=== PATIENT | female | born 1975 | race Two or more races ===

== ENCOUNTER 2024-12-21 11:37 | Inpatient (IN) | payer MEDICAID, SELFPAY ==
[2024-12-21] VITALS (26 sets, daily range): BP systolic 99–155; BP diastolic 52–96; PULSE 64–138; RESP 13–41; TEMP 36.8–37.3; O2SAT 97–100; BMI 25.3
--- NOTE | 2024-12-21 12:02 | EKG_ITS ---
[facility] Test Date: 2024-12-21 Pat Name: DEL GARZA Department: Room: - Gender: Female [employer]: : 1975 Requested By: Dwayne Rodriguez Order Number: [id number] Reading MD: Dwayne Rodriguez Measurements Intervals [place] Rate: 138 P: 62 [place]: 132 QRS: 21 QRSD: 84 T: 63 QT: 329 QTc: 500 Interpretive Statements SINUS TACHYCARDIA POSSIBLE RIGHT VENTRICULAR CONDUCTION DELAY [RSR (QR) IN V1/V2] NONSPECIFIC T-WAVE ABNORMALITY ABNORMAL RHYTHM ECG Compared to ECG 02/23/2021 16:28:34 No significant changes /store/S0/[id number]/ecg/[id number].pdf
--- NOTE | 2024-12-21 12:02 | XR_ITS ---
Examination: CT abdomen and pelvis without contrast. Coronal 3-D reconstructions. Sagittal 2-D reconstructions. Date and time of exam:December 21, 2024 1425 hours Comparison March 05, 2011 INDICATIONS: Generalized abdominal pain today CTDI: vol (mGy): 7.3 DLP: (mGycm): 349 Technique: Axial images of the abdomen have been obtained, 3 mm slice thickness Intravenous contrast material has not been administered. Low dose protocols were performed. One or more of the following dose reduction techniques were used; automated exposure control, adjustment of the mA and/or KV according to patient size, use of iterative reconstruction technique. Findings: No focal liver or splenic lesions No gallstones No pancreatic or adrenal mass 6 mm calculus in the right renal pelvis, no hydronephrosis or ureteral calculi Aorta normal size Normal appendix No bowel obstruction 8mm fat-containing umbilical hernia No diverticulitis Anteverted uterus with intrauterine device satisfactory position No pelvic mass No bladder mass The osseous structures are intact IMPRESSION: 6 mm calculus in the right renal pelvis No hydronephrosis or ureteral calculi Normal appendix
--- NOTE | 2024-12-21 12:03 | PD.EDRME ---
Rapid Medical Screening Exam RME Arrival date/time: 12/21/24 11:37 49-year-old female with history of type 2 diabetes presents to the emergency room with a chief complaint of nausea, vomiting, elevated blood sugar, weakness, fatigue x 1 day I have greeted and performed a focused initial assessment of this patient. A comprehensive ED assessment and evaluation of the patient, analysis of all test results, and completion of the medical decision making process will be conducted by additional ED providers. Chief Complaint: General Adult/Misc Complain Vital signs: Vital Signs Temperature 98.9 F 12/21/24 11:59 Pulse Rate 138 H 12/21/24 11:59 Respiratory Rate 20 12/21/24 11:59 Blood Pressure 130/91 H 12/21/24 11:59 Pulse Oximetry (%) 100 12/21/24 11:59 Oxygen Delivery Method Room Air 12/21/24 11:59 Vital signs reviewed by provider: Yes
[2024-12-21 12:31] LABS: Beta Hydroxybutyrate 6.4 mmol/L (<0.6)
[2024-12-21 12:32] LABS: Basophils # (Auto) 0.1 Thou/mm3 (0.0-0.2); Basophils % (Auto) 0 % (0-2.5); Eosinophils % (Auto) 0 % (0-10); Hematocrit 44.1 % (36.0-46.0); Hemoglobin 14.2 g/dL (12.0-16.0); Immature Granulocytes % (Auto) 1 % (0-0); Immature Granulocytes Auto 0.26 Thou/mm3 (0.00-0.00); Lymphocytes # (Auto) 1.5 Thou/mm3 (1.0-4.8); Lymphocytes % (Auto) 6 % (10-50); Mean Corpuscular HGB Conc 32.2 g/dl (31.0-37.0); Mean Corpuscular Hemoglobin 28.1 pg (25.0-35.0); Mean Corpuscular Volume 87 fL (80-100); Monocytes % (Auto) 4 % (0-12); Neutrophils # (Auto) 22.6 Thou/mm3 (1.8-7.7); Neutrophils % (Auto) 89 % (37-80); Nucleated Red Blood Cell % 0 /100 WBC (0); Platelet Count 365 Thou/mm3 (140-440); RDW Standard Deviation 42.5 fL (36.4-46.3); Red Blood Count 5.05 Miln/mm3 (4.00-5.20); White Blood Count 25.4 Thou/mm3 (3.6-11.0)
[2024-12-21 12:51] LABS: B-Type Natriuretic Peptide 35 pg/mL (0-100)
[2024-12-21 12:55] LABS: Alanine Aminotransferase 12 U/L (10-49); Albumin, Serum 5.7 gm/dL (3.5-5.0); Albumin/Globulin Ratio 1.5 (1.2-2.2); Alkaline Phosphatase 145 U/L (46-116); Anion Gap 29 (7-16); Aspartate Amino Transferase 14 U/L (0-34); BUN/Creatinine Ratio 15 Ratio (12-20); Bilirubin,Total 0.2 mg/dL (0.3-1.2); Blood Urea Nitrogen 22 mg/dL (9-23); Calcium 10.2 mg/dL (8.3-10.6); Calcium (Corrected) 10.2 mg/dL (8.5-10.1); Chloride 99 mMol/L (98-107); Creatinine (Component) 1.5 mg/dL (0.6-1.3); Estimated Creatinine Clearance 38.8 mL/min (>60); Globulin 3.7 gm/dL (2.3-3.5); Lipase 27 U/L (12-53); Osmolality,Calculated 297 (275-295); Potassium 4.6 mMol/L (3.4-5.1); Sodium 138 mMol/L (136-145); Total Protein 9.4 gm/dL (5.7-8.2); Troponin I < 0.020 ng/mL (0.0-0.045); eGFR 43 See Note
[2024-12-21 12:57] LABS: Carbon Dioxide < 10.0 mMol/L (20.0-31.0); Glucose 436 mg/dL (74-106)
[2024-12-21 13:41] LABS: Collection Type, Urine Clean Catch
[2024-12-21 13:52] LABS: HCG Qualitative,Urine Negative
[2024-12-21 13:58] LABS: Bilirubin,Urine Negative (Negative); Blood,Urine 1+ (Negative); Budding Yeast,Urine Present; Clarity,Urine Clear (Clear/Hazy); Color,Urine Lt-Yellow (Lt Yel-Yel); Glucose, Urine 4+ (Negative); Hyaline Casts,Urine 2 /hpf (0-1); Ketones,Urine 4+ (Negative); Leukocyte Esterase,Urine Negative (Negative); Nitrite,Urine Negative (Negative); PH,Urine 5.5 (5.0-7.0); Protein,Urine 1+ (Neg - Trace); RBC,Urine 3 /hpf (0-3); Specific Gravity,Urine 1.019 (1.001-1.035); Squamous Epithelial Cell,Urine 6 /hpf (0-5); Urobilinogen,Urine Negative mg/dL (0.0-1.0); WBC,Urine < 1 /hpf (0-5)
--- NOTE | 2024-12-21 14:14 | EDNOTE_ITS ---
ED General RME/HPI General Chief complaint: General Adult/Misc Complain Stated complaint: BLOOD SUGAR 446 @ 09:27 Arrival date/time: 12/21/24 11:37 RME / HPI RME / HPI narrative: Patient is a 49 years old female with PMH of type 2 diabetes presented to the ED due to nausea and vomiting. She reports elevated blood sugar at 500 today morning. She also reports weakness and abdominal pain since yesterday. She reports she is using long acting insulin only and never been prescribed short acting insulin. She denies chest pain, SOB, palpitations, diarrhea, fever or chills. She vomited several time today morning. She reports no blood in emesis or in stool and denies melena. Related Data Previous Rx's ?Medication ?Instructions ?Recorded blood sugar diagnostic (Blood #100 ea 02/26/21 Glucose Test strips) blood-glucose meter (Blood Glucose #1 ea 02/26/21 Monitoring kit) insulin glargine 100 unit/mL (3 25 unit (0.25 mL) subc ut QAM #15 mL 02/26/21 mL) subcutaneous pen (Basaglar KwikPen U-100 Insulin) lancets 33 gauge (BD Ultra Fine #100 ea 02/26/21 Lancets) pen needle, diabetic 31 gauge x #50 ea 02/26/21 1/ (Lite Touch Insulin Pen Leigh) Allergies Allergy/AdvReac Type Severity Reaction Status Date / Time NKA* Allergy Uncoded 12/21/24 11:42 Review of Systems Review of Systems Systems Reviewed: All systems reviewed, normal except as documented ED Exam Narrative Physical exam: Gen: Well-developed and well-nourished. HEENT: NCAT, PERRLA, EOMI, MMM, anicteric conjunctivae. CVS: normal S1 and S2. RRR. No M/R/G. Resp: CTA B/L. No rhonchi, rales, crackles or wheezing. Abd: soft, tender, non-distended. BS+ in all 4 quadrants. MSK: Good ROM in BUE & BLE. No edema or rash. Neuro: CN II-XII grossly intact. Strength 5/5 in BUE & BLE. Alert and oriented x3. Psych: appropriate mood and affect. Course Quality Measures none Orders Category Date Time Status Bedside Blood Glucose Q1HR Care 12/21/24 14:09 Active COVID-19 Screening Questionnaire NOW Care 12/21/24 14:16 Active Dump Truck Operator STAT Care 12/21/24 14:09 Active DKA Protocol QSHIFT Care 12/21/24 14:09 Active Decision to Admit X1 Care 12/21/24 14:16 Active EKG (ED ONLY) *Do not use* NOW Care 12/21/24 12:03 Completed Fingerstick [Bedside Blood Glucose] NOW Care 12/21/24 12:02 Active Insert IV STAT Care 12/21/24 14:09 Active Intake and Output Routine Care 12/21/24 14:09 Ordered Notify provider NEEDED Care 12/21/24 14:09 Active Referral Registered Dietitian Routine Cons 12/21/24 14:[address] abdomen pelvis wo con Stat Exams 12/21/24 12:02 Completed EKG (ED Only) Stat Exams 12/21/24 12:02 Ordered Arterial Blood Gas Stat Lab 12/21/24 15:06 Completed BNP [B-Type Natriuretic Peptide] Stat Lab 12/21/24 12:13 Completed Beta Hydroxybutyrate Stat Lab 12/21/24 12:13 Completed Beta Hydroxybutyrate Stat Lab 12/21/24 14:49 Completed CBC Stat Lab 12/21/24 12:13 Completed CMP [Comprehensive Metabolic Panel] Stat Lab 12/21/24 12:13 Completed Glycohemoglobin w (eAG) Stat Lab 12/21/24 14:49 Completed HCG Qualitative,Urine Stat Lab 12/21/24 13:21 Completed Lactate (Lactic Acid) Stat Lab 12/21/24 14:49 Results Lipase Stat Lab 12/21/24 12:13 Completed Magnesium Stat Lab 12/21/24 14:49 Completed Phosphorous Stat Lab 12/21/24 14:49 Completed Troponin I Stat Lab 12/21/24 12:13 Completed UA [Urinalysis] Stat Lab 12/21/24 13:21 Completed Urine Culture Stat Lab 12/21/24 13:21 Received Dextrose 5%-Lactated Ringers [D5-Lr] 1,000 ml Med 12/21/24 14:08 Active Pot Chl Additive [KCl Additive] 40 meq IV 250 mls/hr Dextrose 5%-Lactated Ringers [D5-Lr] 1,000 ml Med 12/21/24 14:08 Active IV 250 mls/hr Dextrose 50% Syr [D50w Syringe Abboject] Med 12/21/24 14:08 Active 25 ml IV PRNMRX1 PRN KCL 20 mEq/L in D5-LR Med 12/21/24 14:08 Active 20 meq in 1,000 ml IV 250 mls/hr Magnesium Sulfate 2 GM Ivpb [Magnesium Sulfate Ivpb] Med 12/21/24 14:08 Active 2 gm in 50 ml IV 25 mls/hr POT PHOS 15 mMol in NS 250 ML [Pot Phos 15 mMol in NS Med 12/21/24 14:08 Active 250 ml] 15 mmol in 250 ml IV PRN POTASSIUM CHL 10 mEq IVPB [Kcl Ivpb] Med 12/21/24 14:08 Active 10 meq in 100 ml IV 100 mls/hr POTASSIUM CHL 10 mEq IVPB [Kcl Ivpb] Med 12/21/24 14:08 Active 10 meq in 100 ml IV PRN Pre-Mixed [Pre-mixed Bag] 1 bag Med 12/21/24 14:08 Active Insulin Reg 100 Units/100 ml [Myxredlin] 100 unit IV 0.1 unit/kg/hr Ringers Lactated 1000 ml [Lactated Ringers] 1,000 ml Med 12/21/24 14:08 Active Pot Chl Additive [KCl Additive] 20 meq IV 250 mls/hr Ringers Lactated 1000 ml [Lactated Ringers] 1,000 ml Med 12/21/24 14:08 Active Pot Chl Additive [KCl Additive] 40 meq IV 250 mls/hr Ringers Lactated 1000 ml [Lactated Ringers] 1,000 ml Med 12/21/24 14:08 Active IV 250 mls/hr Ringers Lactated 1000 ml [Lactated Ringers] 1,000 ml Med 12/21/24 14:58 Discontinued IV 999 mls/hr Ringers Lactated 500 ml [Lactated Ringers] 500 ml Med 12/21/24 14:57 Discontinued IV 999 mls/hr Sodium Bicarb 8.4% SYR Med 12/21/24 14:08 Active 50 ml IV PRN PRN Sodium Chloride 0.9% 250 ml [Ns] 250 ml Med 12/21/24 14:08 Active Sod Phos Additive [NaPhos Additive] 15 mmol IV 62.5 mls/hr Vital Signs Vital signs: Vital Signs Temperature 98.9 F 12/21/24 11:59 Pulse Rate 138 H 12/21/24 11:59 Respiratory Rate 20 12/21/24 11:59 Blood Pressure 130/91 H 12/21/24 11:59 Pulse Oximetry (%) 100 12/21/24 11:59 Oxygen Delivery Method Room Air 12/21/24 11:59 [facility] Patient data External records reviewed:: [facility] previous records Clinical information provided by:: patient and family Social determinants that could affect healthcare access:: none Patient has the following chronic illnesses:: IDDM 2 How is presenting disease/condition affected by chronic disease/condition?: c aused by Evaluation data The following diagnostics were reviewed and interpreted by me:: lab results and radiology exam(s) Lab and/or radiology exams considered but not ordered:: abdominal US Interpretation Summary: Consistent with AGMA and DKA. Medications Medications considered but not ordered:: none Medication administrations:: Medication Administration History Acetaminophen (Acetaminophen 325 Mg Tablet) 650 mg PO Q6H PRN PRN Reason: Pain 1-3 or Fever >100.3 Stop: 01/20/25 15:03 Dextrose (Dextrose 50%-Water Inj 50 Ml Syringe) 25 ml IV PRNMRX1 PRN PRN Reason: Blood Sugar - Low Enoxaparin Sodium (Enoxaparin Sod Inj 40 Mg/0.4 Ml Syringe) 40 mg SC HS EDENILSON Stop: 01/04/25 20:59 Potassium Chloride (Kcl Ivpb) 10 meq in 100 mls @ 100 mls/hr IV .Q1H PRN PRN Reason: IF POTASSIUM LESS THAN 3.3 Stop: 01/20/25 14:07 Magnesium Sulfate (Magnesium Sulfate Ivpb) 2 gm in 50 mls @ 25 mls/hr IV .Q2H PRN PRN Reason: PER DKA PROTOCOL Stop: 01/20/25 14:07 Insulin Human Regular 100 unit (/ IV Miscellaneous Supplies) 100 mls @ 6.078 mls/hr IV .[id number] PRN; Protocol PRN Reason: PER PROTOCOL Stop: 01/20/25 14:07 Last Admin: 12/21/24 15:48 Dose: 0.1 unit/kg/hr, 6.078 mls/hr Documented By: CS Co-signed By: LOUIE Dextrose/Lactated Ringer's (D5-Lr) 1,000 mls @ 250 mls/hr IV .Q4H PRN PRN Reason: PER PROTOCOL Stop: 01/20/25 14:07 Lactated Ringer's (Lactated Ringers) 1,000 mls @ 250 mls/hr IV .Q4H PRN PRN Reason: PER PROTOCOL Stop: 12/22/24 14:07 Potassium Chloride 20 meq/ (Lactated Ringer's) 1,010 mls @ 250 mls/hr IV .Q4H3M PRN PRN Reason: K LEVEL 3.3 TO 5.3mM/L Stop: 01/20/25 14:07 Last Admin: 12/21/24 16:12 Dose: 250 mls/hr Documented By: CS Potassium Chloride 40 meq/ (Lactated Ringer's) 1,020 mls @ 250 mls/hr IV .Q4H5M PRN PRN Reason: K LEVEL < 3.3 mM/L Stop: 01/20/25 14:07 Potassium Chloride 40 meq/ (Dextrose/Lactated Ringer's) 1,020 mls @ 250 mls/hr IV .Q4H5M PRN PRN Reason: K LEVEL < 3.3mM/L Stop: 01/20/25 14:07 Potassium Cl/Dextrose/Lact Ringer's (Kcl 20 Meq/L In D5-Lr) 20 meq in 1,000 mls @ 250 mls/hr IV .Q4H PRN PRN Reason: K LEVEL 3.3 TO 5.3 mM/L Stop: 01/20/25 14:07 Potassium Chloride (Kcl Ivpb) 10 meq in 100 mls @ 50 mls/hr IV PRN PRN PRN Reason: K LEVEL 3.3 to 5.3 & BG > 200 Stop: 01/20/25 14:07 Potassium Phosphate (Pot Phos 15 Mmol In Ns 250 Ml) 15 mmol in 250 mls @ 62.5 mls/hr IV PRN PRN PRN Reason: Phosphate <= 1mg/dL Stop: 01/20/25 14:07 Sodium Phosphate 15 mmol/ (Sodium Chloride) 255 mls @ 62.5 mls/hr IV .Q4H5M PRN PRN Reason: Phosphate <= 1mg/dL and K> than 5.3 Stop: 01/20/25 14:07 Ondansetron HCl (Ondansetron Inj 2 Mg/Ml Inj 2 Ml) 4 mg IV Q6H PRN; Protocol PRN Reason: NAUSEA OR VOMITING Stop: 01/20/25 15:09 Pantoprazole Sodium (Pantoprazole Inj 40 Mg Vial) 40 mg IVP HS EDENILSON Stop: 01/20/25 20:59 Sodium Bicarbonate (Sodium Bicarb Inj 8.4% Syr 50 Ml Syringe) 50 ml IV PRN PRN PRN Reason: For ph <= to 7.0 Stop: 01/20/25 14:07 Discontinued Medications Lactated Ringer's (Lactated Ringers) 500 mls @ 999 mls/hr IV .Q31M ONE Stop: 12/21/24 15:27 Last Admin: 12/21/24 14:57 Dose: Not Given Documented By: LOUIE Non-Admin Reason: Cancelled by Provider Lactated Ringer's (Lactated Ringers) 1,000 mls @ 999 mls/hr IV .Q1H1M ONE Stop: 12/21/24 15:58 Last Admin: 12/21/24 14:59 Dose: 999 mls/hr Documented By: LOUIE DKA protocol initiated. Consultations Consultation(s) initiated? (list below): No Diagnosis Differential Diagnosis ED Complaint MDM: DKA, HHS, acute appendicitis, diverticulitis Most likely diagnosis given after review of the tests above:: DKA Admission Indicated Admission indicated?: indicated Explain why admission is indicated or not indicated:: Admission for DKA to ICU Admission Request Was there a request for admission?: Yes Admission Attestation Admission request attestation: Discussed case with Dr. Swain from ICU service regarding admission. Discussed patients ED course, exam findings, labs, and radiology results. The morgue keeper agrees to accept the patient for admission. Disposition Plan Disposition Plan: Admit Medical Decision Making Differential Diagnosis Differential Diagnosis: DKA, HHS, acute appendicitis, diverticulitis Lab Data 12/21/24 12:13 12/21/24 12:13 Labs: Lab Results 12/21/24 12/21/24 12/21/24 Range/Units 12:13 13:21 14:49 WBC 25.4 H (3.6-11.0) Thou/mm3 RBC 5.05 (4.00-5.20) Miln/mm3 Hgb 14.2 (12.0-16.0) g/dL Hct 44.1 (36.0-46.0) % MCV 87 (80-100) fL MCH 28.1 (25.0-35.0) pg MCHC 32.2 (31.0-37.0) g/dl RDW Std Deviation 42.5 (36.4-46.3) fL Plt Count 365 (140-440) Thou/mm3 Neut % (Auto) 89 H (37-80) % Lymph % (Auto) 6 L (10-50) % [place] % (Auto) 4 (0-12) % Eos % (Auto) 0 (0-10) % Baso % (Auto) 0 (0-2.5) % Neut # (Auto) 22.6 H (1.8-7.7) Thou/mm3 Lymph # (Auto) 1.5 (1.0-4.8) Thou/mm3 [place] # (Auto) 1.0 H (0.0-0.8) Thou/mm3 Eos # (Auto) 0.0 (0.0-0.5) Thou/mm3 Baso # (Auto) 0.1 (0.0-0.2) Thou/mm3 Immature Gran # (Auto) 0.26 H (0.00-0.00) Thou/mm3 Absolute Nucleated RBC 0.00 (0.00-0.00) Thou/mm3 Immature Gran % 1 H (0-0) % Nucleated RBC % 0 (0) /100 WBC Sodium 138 (136-145) mMol/L Potassium 4.6 (3.4-5.1) mMol/L Chloride 99 (98-107) mMol/L Carbon Dioxide < 10.0 L* (20.0-31.0) mMol/L Anion Gap 29 H (7-16) BUN 22 (9-23) mg/dL Creatinine 1.5 H (0.6-1.3) mg/dL Estim Creat Clear Calc 38.8 L (>60) mL/min eGFR 43 L (60 - ) See Note BUN/Creatinine Ratio 15 (12-20) Ratio Glucose 436 H* (74-106) mg/dL Estimated Ave Glu mg/dL 312 H (80-131) mg/dL Hemoglobin A1c 12.5 H (4.8-6.0) % Hgb Calculated Osmolality 297 H (275-295) Lactic Acid 3.3 H (0.4-2.0) mMol/L Calcium 10.2 (8.3-10.6) mg/dL Corrected Calcium 10.2 H (8.5-10.1) mg/dL Phosphorus 4.3 (2.4-5.1) mg/dL Magnesium 2.3 (1.6-2.6) mg/dL Total Bilirubin 0.2 L (0.3-1.2) mg/dL AST 14 (0-34) U/L ALT 12 (10-49) U/L Alkaline Phosphatase 145 H (46-116) U/L Troponin I < 0.020 (0.0-0.045) ng/mL B-Natriuretic Peptide 35 (0-100) pg/mL Total Protein 9.4 H (5.7-8.2) gm/dL Albumin 5.7 H (3.5-5.0) gm/dL Globulin 3.7 H (2.3-3.5) gm/dL Albumin/Globulin Ratio 1.5 (1.2-2.2) Lipase 27 (12-53) U/L Beta-Hydroxybutyrate/Acetoacetate 6.4 H 6.1 H (<0.6) mmol/L Ur Collection Type Clean Catch Urine Color Lt-Yellow (Lt Yel-Yel) Urine Clarity Clear (Clear/Hazy) Urine pH 5.5 (5.0-7.0) Ur Specific [place] 1.019 (1.001-1.035) Urine Protein 1+ A (Neg - Trace) Urine Glucose (UA) 4+ A (Negative) Urine Ketones 4+ A (Negative) Urine Blood 1+ A (Negative) Urine Nitrite Negative (Negative) Urine Bilirubin Negative (Negative) Urine Urobilinogen (Auto) Negative (0.0-1.0) mg/dL Ur Leukocyte Esterase Negative (Negative) Urine RBC 3 (0-3) /hpf Urine WBC < 1 (0-5) /hpf Ur Squamous Epith Cells 6 H (0-5) /hpf Urine Bacteria None (None) Hyaline Casts 2 H (0-1) /hpf Urine Yeast (Budding) Present A (None) Urine HCG, Qual Negative Discharge Plan Plan Patient Disposition: Admit Acute Care w/in Hospital Disposition Comment: ICU Problem List Clinical Impression: DKA (diabetic ketoacidoses)
[2024-12-21] MEDS: RINGERS LACTATED 1000 ML 1,000 ML 999 ML IV (14:59)
[2024-12-21 15:06] LABS: Lactate (Lactic Acid) 3.3 mMol/L (0.4-2.0)
[2024-12-21 15:11] LABS: Base Excess -22 (-3-3); HCO3 4 mEq/L (20-26); Inspired Oxygen, FIO2 21 %; O2 Saturation 99 % (91-98); PCO2 12 mmHg (32.0-48.0); PO2 138 mmHg (83-108)
[2024-12-21 15:14] LABS: pH, Arterial 7.15 (7.35-7.45)
[2024-12-21 15:15] LABS: Beta Hydroxybutyrate 6.1 mmol/L (<0.6)
[2024-12-21 15:15] LABS: Allen Test Performed/OK; Puncture Site Right Radial
[2024-12-21 15:28] LABS: Magnesium 2.3 mg/dL (1.6-2.6); Phosphorous 4.3 mg/dL (2.4-5.1)
[2024-12-21 15:29] LABS: Glucose Estimated Average 312 mg/dL (80-131); Hemoglobin A1C 12.5 % Hgb (4.8-6.0)
--- NOTE | 2024-12-21 15:45 | ESHP_ITS ---
<Statement entered by nAn Marvin MD - 12/21/24 17:55> 49-year-old female with past medical history of diabetes on home insulin, admitted for DKA. DKA protocol started. I discussed with and supervised my co-resident involved in the care of this patient. I agree with the assessment and plan as documented above. Ann Marvin,PGY-3 Disclaimer: Despite multiple revisions, due to the dictation software being used, the document below may not be free of grammatical errors including phonetic/typographic errors. However, this does not deter from our commitment to providing health care in the patient's best interest in mind Documentation for date of: 12/21/24 HPI History of Present Illness History of present illness: The patient is a 49-year-old female with a past medical history of hypertension, hyperlipidemia, type 2 diabetes on insulin who presented to the ED on 12/21/2024 with complaints of abdominal pain, nausea and vomiting and generalized weakness. Per the patient, about 2 days ago she noticed that she was having increased urination and consequently increased fluid intake. Yesterday however, she started having a lot of abdominal pain with nausea and vomiting and associated diarrhea. Pain is said to be generalized, but worse in the epigastric region and lower quadrants. She had about 3 episodes of vomiting, nonbilious and nonbloody as well as loose stools about 3 episodes as well, also nonbloody. Prior to this, the patient has not had any sick contacts or any general feeling of unwellness, she denies dysuria or any urinary symptoms, no upper respiratory tract infections. She does endorse subjective fevers and chills as well as subjective sweats. The patient reports that she takes about 60 units of insulin at night and she uses this regularly as well as 12 to 15 units of short acting with meals. When asked, she does not know her blood glucose range at home because her checks it. She does admit that this morning when he was checked, it was said to be above 400s which prompted her visit to the ED. ED course: In the ED, the patient was afebrile, initial blood pressure was normal. Significant labs included leukocytosis of 25.4, CMP showed sodium 138 potassium 4.6 chloride 99 bicarb less than 10 anion gap 29 BUN 22 creatinine 1.5 glucose 436 lactic acid 3.3 corrected calcium 10.2 beta hydroxybutyrate of 6.1. ABG was done and pH is 7.15 with pCO2 of 12 and bicarb of 4. Urinalysis showed 1+ protein, 4+ glucose, 4+ ketones, 6 epithelial cells, hyaline cast and no bacteria. [id number]. CT abdomen pelvis was done showed a 6 mm calculus in the right renal pelvis. Admitted to ICU for DKA management PMHx-as above PSHx-Nil Social history-never smoked, does not drink alcohol or use illicit drugs Home meds-insulin, metformin, hydrochlorothiazide, gabapentin, simvastatin. Review of Systems Review of Systems Narrative Review of Systems: GENERAL: Admits subjective fevers and chills as well as diaphoresis HEENT: Admits headache NEURO: Admits unusual weakness CARDIO: Denies chest pain or palpitations. PULM: Denies SOB, coughing, or wheezing. GI: Admits abdominal pain, nausea, vomiting, diarrhea. URO: Admits increased urination, denies dysuria. MSK/EXT/SKIN: Denies joint/skeletal/muscle pain, issues/changes in upper or lower extremities, itchiness, or superficial pain. PSYCH: Cooperative, pleasant mood & affect. Exam Vital Signs Temp Pulse Resp BP Pulse Ox O2 Del Method 98.4 F 132 H 20 154/96 H 100 Room Air 12/21/24 14:42 12/21/24 14:42 12/21/24 14:42 12/21/24 14:42 12/21/24 14:42 12/21/24 14:42 Narrative Exam GENERAL: AAOX3, moderately dehydrated, little comfortable NEURO: WHITE SIDEWALL TIRE BUFFER grossly intact, moves extremities x4 HEENT: Dry mucosa. Eyes open, symmetrical, & clear CARDIO: No chest pain on palpation. Tachycardic, no murmurs PULM: No noted coughing/dyspnea. Lungs CTA B/L GI: Abdomen soft, nondistended, tender epigastrium and lower quadrants URO/RESIDENT SERVICES MANAGER:: No further abnormalities noted. SKIN/MSK/EXT: No wounds/rashes/edema/amputations, no pain on palpation. Pedal pulses present B/L Results: Labs 12/24/24 05:38 12/24/24 05:38 Labs: Short CBC 12/21/24 Range/Units 12:13 WBC 25.4 H (3.6-11.0) Thou/mm3 Hgb 14.2 (12.0-16.0) g/dL Hct 44.1 (36.0-46.0) % Plt Count 365 (140-440) Thou/mm3 BMP 12/21/24 12:13 Sodium 138 Potassium 4.6 Chloride 99 Carbon Dioxide < 10.0 L* BUN 22 Creatinine 1.5 H Glucose 436 H* Calcium 10.2 Cardiac Enzymes 12/21/24 Range/Units 12:13 Troponin I < 0.020 (0.0-0.045) ng/mL Liver Function 12/21/24 Range/Units 12:13 Total Bilirubin 0.2 L (0.3-1.2) mg/dL AST 14 (0-34) U/L ALT 12 (10-49) U/L Alkaline Phosphatase 145 H (46-116) U/L Albumin 5.7 H (3.5-5.0) gm/dL Urine 12/21/24 Range/Units 13:21 Urine Color Lt-Yellow (Lt Yel-Yel) Urine Clarity Clear (Clear/Hazy) Urine pH 5.5 (5.0-7.0) Ur Specific [place] 1.019 (1.001-1.035) Urine Protein 1+ A (Neg - Trace) Urine Glucose (UA) 4+ A (Negative) ABG Interpretation ABG results: 12/21/24 15:06 ABG pH 7.15 L* ABG pCO2 12 L* ABG pO2 138 H ABG HCO3 4 L* ABG O2 Saturation 99 H ABG Base Excess -22 L Quality Measures Quality Measures VTE prophylaxis Medications Home Medications and Allergies Allergies Allergy/AdvReac Type Severity Reaction Status Date / Time No Known Allergies Allergy Unverified 12/22/24 08:32 Visit Medications Acetaminophen (Acetaminophen 325 Mg Tablet) 650 mg PO Q6H PRN PRN Reason: Pain 1-3 or Fever >100.3 Stop: 01/20/25 15:03 Dextrose (Dextrose 50%-Water Inj 50 Ml Syringe) 25 ml IV [id number] PRN PRN Reason: Blood Sugar - Low Enoxaparin Sodium (Enoxaparin Sod Inj 40 Mg/0.4 Ml Syringe) 40 mg SC HS EDENILSON Stop: 01/04/25 20:59 Potassium Chloride (Kcl Ivpb) 10 meq in 100 mls @ 100 mls/hr IV .Q1H PRN PRN Reason: IF POTASSIUM LESS THAN 3.3 Stop: 01/20/25 14:07 Magnesium Sulfate (Magnesium Sulfate Ivpb) 2 gm in 50 mls @ 25 mls/hr IV .Q2H PRN PRN Reason: PER DKA PROTOCOL Stop: 01/20/25 14:07 Insulin Human Regular 100 unit (/ IV Miscellaneous Supplies) 100 mls @ 6.078 mls/hr IV .[id number] PRN; Protocol PRN Reason: PER PROTOCOL Stop: 01/20/25 14:07 Dextrose/Lactated Ringer's (D5-Lr) 1,000 mls @ 250 mls/hr IV .Q4H PRN PRN Reason: PER PROTOCOL Stop: 01/20/25 14:07 Lactated Ringer's (Lactated Ringers) 1,000 mls @ 250 mls/hr IV .Q4H PRN PRN Reason: PER PROTOCOL Stop: 12/22/24 14:07 Potassium Chloride 20 meq/ (Lactated Ringer's) 1,010 mls @ 250 mls/hr IV .Q4H3M PRN PRN Reason: K LEVEL 3.3 TO 5.3mM/L Stop: 01/20/25 14:07 Potassium Chloride 40 meq/ (Lactated Ringer's) 1,020 mls @ 250 mls/hr IV .Q4H5M PRN PRN Reason: K LEVEL < 3.3 mM/L Stop: 01/20/25 14:07 Potassium Chloride 40 meq/ (Dextrose/Lactated Ringer's) 1,020 mls @ 250 mls/hr IV .Q4H5M PRN PRN Reason: K LEVEL < 3.3mM/L Stop: 01/20/25 14:07 Potassium Cl/Dextrose/Lact Ringer's (Kcl 20 Meq/L In D5-Lr) 20 meq in 1,000 mls @ 250 mls/hr IV .Q4H PRN PRN Reason: K LEVEL 3.3 TO 5.3 mM/L Stop: 01/20/25 14:07 Potassium Chloride (Kcl Ivpb) 10 meq in 100 mls @ 50 mls/hr IV PRN PRN PRN Reason: K LEVEL 3.3 to 5.3 & BG > 200 Stop: 01/20/25 14:07 Potassium Phosphate (Pot Phos 15 Mmol In Ns 250 Ml) 15 mmol in 250 mls @ 62.5 mls/hr IV PRN PRN PRN Reason: Phosphate <= 1mg/dL Stop: 01/20/25 14:07 Sodium Phosphate 15 mmol/ (Sodium Chloride) 255 mls @ 62.5 mls/hr IV .Q4H5M PRN PRN Reason: Phosphate <= 1mg/dL and K> than 5.3 Stop: 01/20/25 14:07 Lactated Ringer's (Lactated Ringers) 1,000 mls @ 999 mls/hr IV .Q1H1M ONE Stop: 12/21/24 15:58 Last Admin: 12/21/24 14:59 Dose: 999 mls/hr Ondansetron HCl (Ondansetron Inj 2 Mg/Ml Inj 2 Ml) 4 mg IV Q6H PRN; Protocol PRN Reason: NAUSEA OR VOMITING Stop: 01/20/25 15:09 Pantoprazole Sodium (Pantoprazole Inj 40 Mg Vial) 40 mg IVP HS EDENILSON Stop: 01/20/25 20:59 Sodium Bicarbonate (Sodium Bicarb Inj 8.4% Syr 50 Ml Syringe) 50 ml IV PRN PRN PRN Reason: For ph <= to 7.0 Stop: 01/20/25 14:07 Discontinued Medications Lactated Ringer's (Lactated Ringers) 500 mls @ 999 mls/hr IV .Q31M ONE Stop: 12/21/24 15:27 Last Admin: 12/21/24 14:57 Dose: Not Given Assessment & Plan Plan Summary: The patient is a 49-year-old female with a past medical history of hypertension, hyperlipidemia, type 2 diabetes on insulin who presented to the ED on 12/21/2024 with complaints of abdominal pain, nausea vomiting and generalized weakness. Admitted to ICU for DKA management Neuro: Stable, no abnormalities Cardiovasc: # History of hypertension The patient has a history of hypertension, at home she is on hydrochlorothiazide. Admission, initial vitals showed a blood pressure of 130/91. On examination, blood pressure was elevated at 154/96. Will continue monitoring blood pressure and start antihypertensive if necessary. Plan: -Will continue to monitor vital signs Pulm: Stable, no abnormalities Renal: #Anion gap metabolic acidosis #Diabetic ketoacidosis #Lactic acidosis CMP significant for bicarb of 4 with normal sodium and potassium and anion gap of 29. Lactic acid-3.3 ABG: pH-7.15, pCO2 12, HCO3 4 Plan: -DKA protocol -Monitor for gap closure #Acute kidney injury #Prerenal azotemia The patient reports decreased oral intake for the last 2 days as well as vomiting and diarrhea. On admission, creatinine-1.5. Baseline unknown Plan: -IV fluids as scheduled -Avoid nephrotoxic medications -Continue monitoring renal panel GI: #Diarrhea The patient reports a 2-day history of vomiting and diarrhea. No recent travel or sick contacts. No other present home having similar symptoms. Diarrhea seems to be resolving Plan: -IV fluid replacement -Stool WBC Endo: #Diabetic ketoacidosis #Ketonuria #Polyuria #Uncontrolled diabetes mellitus The patient presented with nausea, vomiting, abdominal pain and weakness of about 2 days duration. She has a history of type II DM and is on insulin documented to 25 units at night but patient states she uses up to 60 units in addition to 12 to 15 units with meals. She also uses metformin 1 g daily. Per patient, her last A1c was about 10 and she follows up with her PCP. A1c today- 12.5 Initial blood glucose on admission-436. CMP showed metabolic acidosis with an anion gap. Potassium within normal limits at 4.6. BHB-6.1 Admitted for DKA management with IV fluids and insulin drip. Plan: -IV fluid resuscitation -Insulin drip per DKA protocol -Renal panel, lactate every 4 hours -Transition insulin once gap closes/blood glucose less than 200 Urology: #Renal calculi CT abdomen pelvis on admission showed a 6 mm calculus in the right renal pelvis Patient does have abdominal pain, but likely due to DKA Plan: -IV hydration Heme/Onc: #Leukocytosis, likely reactive WBC on admission-25.4. No fevers on admission, the patient reports subjective fever/chills. Examination cerrato, lungs are clear to auscultation. Urinalysis negative for UTI Plan: -Continue to monitor CBC Infectious: Patient has resolving diarrhea, but no other signs of infection besides leukocytosis which is likely reactive. Health maintenance: Dispo: ICU on DKA protocol Diet: N.p.o. GI: Pantoprazole DVT: Lovenox Lines: Peripheral Med Rec: Pending, f/u PT: Not ordered Code: Full Case was discussed with Dr Marvin PGY-3 and attending physician, Dr Wiliam Kc MD PGY-1 Disclaimer: This note was dictated by speech recognition. Minor errors in superintendent colliery may be present due to voice recognition software. Attending Provider Attestation/Addendum Patient seen and examined with the above resident, Cesario Kc MD. I agree with the findings, assessment, and plan of care as documented except for any differences below. Seen in ED with resident team. Recurrent DKA with issues of compliance though need to exclude infection or ischemia as precipitant. History suggests against either other than possible viral gastroenteritis. Similar symptoms though could be purely related to her DKA. No sick contacts to suggest food poisioning. Suspect the later with significant history of elevated A1c suggesting under treatment or compliance issues. Will plan on completing DKA protocol in ICU then will need further optimization OP coordination to get her control better in the intermediate. Total critical care time: I personally spent 30 minutes for review of physiologic parameters, directing plan of care, coordination of care with other specialists, and counseling patient at the bedside.. This is exclusive of time spent teaching housestaff or performing any separate billable procedures. Patient remained at risk for further morbidity and mortality warranting ongoing care and management only available in the intensive care unit.
--- NOTE | 2024-12-21 15:46 | PC.SS ---
Initial assessment: this is 49 year old female who presents from home. Patient is Slovenian speaking. Appeared to be alert and oriented to person, place and situation. Patient confirmed demographic information. Patient lives at home with spouse and family. Patient identified her , [employer] as her emergency contact. Patient reports being independent with ADL's prior to coming into the ED. Patient denies use of DME at home. Patient's PCP is Dr. Isabella Steven. Patient plans to return home upon discharge. Patient is currently pending being admitted at this time. D/c plan: home Next of kin: spouse, [employer]
[2024-12-21] MEDS: INSULIN REG 100 UNITS/100 ML 100 UNIT in PRE-MIXED 1 BAG 6.078 UNIT IV (15:48)
[2024-12-21] MEDS: POT CHL ADDITIVE 20 MEQ in RINGERS LACTATED 1000 ML 1,000 ML 250 MEQ IV (16:12)
[2024-12-21 17:58] LABS: Reflex Lactate? Y
--- NOTE | 2024-12-21 18:15 | PC.NURSE ---
Pt's son states that pt's blood sugar has been difficult to control for awhile. He stated that her usual regimen does include check blood sugars before meals but her insulin routine is not on a sliding scale. States pt woke up this morning with a fasting BS of 518. Pt states that she has been feeling ill and urinating frequently for the last couple of days.
[2024-12-21 18:22] LABS: Lactic Acid, 3 HR 1.4 mMol/L (0.4-2.0)
[2024-12-21 18:34] LABS: Base Excess, Venous -19 (-3-3); O2 Saturation, Venous 82 % (96-97); PCO2, Venous 20 mmHg (36-56); PO2, Venous 46 mmHg (15-58); pH, Venous 7.19 (7.33-7.66)
[2024-12-21 18:59] LABS: Albumin, Serum 4.4 gm/dL (3.5-5.0); Anion Gap 21 (7-16); BUN/Creatinine Ratio 14 Ratio (12-20); Blood Urea Nitrogen 17 mg/dL (9-23); Chloride 109 mMol/L (98-107); Creatinine (Component) 1.2 mg/dL (0.6-1.3); Estimated Creatinine Clearance 48.5 mL/min (>60); Glucose 284 mg/dL (74-106); Magnesium 1.8 mg/dL (1.6-2.6); Osmolality,Calculated 290 (275-295); Phosphorous 1.2 mg/dL (2.4-5.1); Potassium 4.1 mMol/L (3.4-5.1); Sodium 140 mMol/L (136-145)
[2024-12-21 19:04] LABS: eGFR 284 See Note
[2024-12-21 19:08] LABS: Carbon Dioxide < 10.0 mMol/L (20.0-31.0)
[2024-12-21 19:13] LABS: Phosphorous 1.1 mg/dL (2.4-5.1)
[2024-12-21] MEDS: KCL 20 mEq/L in D5-LR 20 MEQ/1,000 ML BAG 250 MEQ IV (20:10)
[2024-12-21] MEDS: ENOXAPARIN SOD INJ 40 MG/0.4 ML SYRINGE SC (21:16)
[2024-12-21] MEDS: PANTOPRAZOLE INJ 40 MG VIAL IVP (21:17)
[2024-12-21] MEDS: RINGERS LACTATED 1000 ML 1,000 ML 250 ML IV (23:00)
[2024-12-21] MEDS: POTASSIUM CHL 10 mEq IVPB 10 MEQ/100 ML BAG 50 MEQ IV (23:00)
[2024-12-21 23:22] LABS: Albumin, Serum 3.9 gm/dL (3.5-5.0); Anion Gap 13 (7-16); BUN/Creatinine Ratio 16 Ratio (12-20); Blood Urea Nitrogen 16 mg/dL (9-23); Calcium 8.7 mg/dL (8.3-10.6); Calcium (Corrected) 8.8 mg/dL (8.5-10.1); Carbon Dioxide 15.5 mMol/L (20.0-31.0); Chloride 111 mMol/L (98-107); Estimated Creatinine Clearance 58.2 mL/min (>60); Glucose 222 mg/dL (74-106); Magnesium 1.6 mg/dL (1.6-2.6); Osmolality,Calculated 285 (275-295); Sodium 139 mMol/L (136-145); eGFR > 60 See Note
[2024-12-21] MEDS: POT PHOS 15 mMol in NS 250 ML 15 MMOL/250 ML BAG 62.5 MMOL IV (23:32)
[2024-12-21 23:45] LABS: Phosphorous 0.7 mg/dL (2.4-5.1)
[2024-12-22] VITALS (21 sets, daily range): BP systolic 83–125; BP diastolic 45–78; PULSE 82–113; RESP 5–98; TEMP 36.7–36.9; O2SAT 96–100; BMI 25.7
[2024-12-22] MEDS: DEXTROSE 5%-LACTATED RINGERS 1,000 ML 250 ML IV (01:00)
[2024-12-22 03:15] LABS: Albumin, Serum 3.9 gm/dL (3.5-5.0); Anion Gap 11 (7-16); BUN/Creatinine Ratio 18 Ratio (12-20); Blood Urea Nitrogen 16 mg/dL (9-23); Calcium 8.6 mg/dL (8.3-10.6); Calcium (Corrected) 8.7 mg/dL (8.5-10.1); Carbon Dioxide 17.5 mMol/L (20.0-31.0); Chloride 113 mMol/L (98-107); Creatinine (Component) 0.9 mg/dL (0.6-1.3); Estimated Creatinine Clearance 64.6 mL/min (>60); Glucose 131 mg/dL (74-106); Magnesium 1.5 mg/dL (1.6-2.6); Osmolality,Calculated 284 (275-295); Phosphorous 2.1 mg/dL (2.4-5.1); Potassium 3.9 mMol/L (3.4-5.1); Sodium 141 mMol/L (136-145); eGFR > 60 See Note
[2024-12-22 05:21] LABS: Basophils % (Auto) 0 % (0-2.5); Eosinophils % (Auto) 0 % (0-10); Hematocrit 29.1 % (36.0-46.0); Hemoglobin 9.9 g/dL (12.0-16.0); Immature Granulocytes % (Auto) 0 % (0-0); Immature Granulocytes Auto 0.06 Thou/mm3 (0.00-0.00); Lymphocytes # (Auto) 2.6 Thou/mm3 (1.0-4.8); Lymphocytes % (Auto) 19 % (10-50); Mean Corpuscular Hemoglobin 28.2 pg (25.0-35.0); Mean Corpuscular Volume 83 fL (80-100); Monocytes # (Auto) 1.1 Thou/mm3 (0.0-0.8); Monocytes % (Auto) 8 % (0-12); Neutrophils % (Auto) 73 % (37-80); Nucleated Red Blood Cell % 0 /100 WBC (0); Platelet Count 273 Thou/mm3 (140-440); RDW Standard Deviation 40.6 fL (36.4-46.3); Red Blood Count 3.51 Miln/mm3 (4.00-5.20); White Blood Count 13.9 Thou/mm3 (3.6-11.0)
[2024-12-22 05:31] LABS: Beta Hydroxybutyrate 1.6 mmol/L (<0.6)
[2024-12-22] MEDS: KCL 20 mEq/L in D5-LR 20 MEQ/1,000 ML BAG 250 MEQ IV (06:04)
[2024-12-22 06:12] LABS: Alanine Aminotransferase < 7 U/L (10-49); Albumin, Serum 3.5 gm/dL (3.5-5.0); Albumin/Globulin Ratio 1.4 (1.2-2.2); Alkaline Phosphatase 72 U/L (46-116); Anion Gap 7 (7-16); Aspartate Amino Transferase < 10 U/L (0-34); BUN/Creatinine Ratio 18 Ratio (12-20); Bilirubin,Total 0.4 mg/dL (0.3-1.2); Blood Urea Nitrogen 16 mg/dL (9-23); Calcium 8.5 mg/dL (8.3-10.6); Calcium (Corrected) 8.9 mg/dL (8.5-10.1); Carbon Dioxide 19.6 mMol/L (20.0-31.0); Cardiac Risk Estimate 3.4 RATIO (3.7-5.6); Chloride 114 mMol/L (98-107); Cholesterol 125 mg/dL (132-200); Creatinine (Component) 0.9 mg/dL (0.6-1.3); Estimated Creatinine Clearance 65.1 mL/min (>60); Globulin 2.5 gm/dL (2.3-3.5); Glucose 152 mg/dL (74-106); HDL Cholesterol 37 mg/dL (40-60); LDL Cholesterol,Calculated 72 mg/dL (0-130); Osmolality,Calculated 285 (275-295); Potassium 3.7 mMol/L (3.4-5.1); Sodium 141 mMol/L (136-145); Thyroid Stimulating Hormone 0.46 uIU/mL (0.55-4.78); Triglycerides 80 mg/dL (30-150); eGFR > 60 See Note
[2024-12-22] MEDS: INSULIN GLARGINE (Lantus) 5 UNIT/0.05 ML (PER 5 UNITS) 35 UNIT SC ×2 (06:46→21:16)
[2024-12-22 07:17] LABS: Magnesium 1.6 mg/dL (1.6-2.6); Phosphorous 2.1 mg/dL (2.4-5.1)
[2024-12-22 11:28] LABS: Albumin, Serum 3.3 gm/dL (3.5-5.0); Anion Gap 10 (7-16); BUN/Creatinine Ratio 17 Ratio (12-20); Blood Urea Nitrogen 15 mg/dL (9-23); Calcium 8.4 mg/dL (8.3-10.6); Carbon Dioxide 17.9 mMol/L (20.0-31.0); Chloride 110 mMol/L (98-107); Creatinine (Component) 0.9 mg/dL (0.6-1.3); Estimated Creatinine Clearance 65.1 mL/min (>60); Glucose 251 mg/dL (74-106); Magnesium 1.6 mg/dL (1.6-2.6); Osmolality,Calculated 284 (275-295); Phosphorous 1.9 mg/dL (2.4-5.1); Potassium 3.9 mMol/L (3.4-5.1); Sodium 138 mMol/L (136-145); eGFR > 60 See Note
[2024-12-22] MEDS: INSULIN LISPRO (AdmeLOG) 1 UNIT/0.01 ML UNIT SC ×2 (11:30→17:08)
--- NOTE | 2024-12-22 13:27 | PC.SS ---
Update: Patient admitted to ICU due to DKA. Patient on room air. Patient is possible downgrade.
--- NOTE | 2024-12-22 15:22 | ESPR_ITS ---
<Statement entered by Jessica Bardales MD - 12/22/24 23:28> Patient was seen and examined by me personally. I have directly supervised and reviewed documentation by the team resident and agree with its findings with any exceptions or additional findings as below. Plan of care was discussed with the attending, Dr. Aburto. ICU downgrade received today. Patient is a 49-year-old female with a past medical history of hypertension, hyperlipidemia, type 2 diabetes on insulin who presented to the ED on 12/21/2024 with complaints of abdominal pain, nausea vomiting and generalized weakness. She was subsequently admitted to ICU for DKA management. Acidosis resolved and the patient is transitioned to subQ insulin, glargine 35 U BID and lispro 10 U TIDWM. Will continue care under Team B. Jessica Bardales, PGY-2 Documentation for date of: 12/22/24 Subjective Subjective Interval history: Downgrade received from ICU team on 12/22/24 for 49 year old female with past medical history of hypertension, hyperlipidemia, insulin-dependent type 2 diabetes mellitus (60u of long acting and 10u three times a day premeal) presenting to the hospital initally with abdominal pain found to be in diabetic ketoacidosis. Patient was admitted to the ICU and treated with insulin gtt and eventually AG closed; patient was transitioned to subcutaneous insulin regimen. Patient will require diabetic education, x ray equipment servicer consultation and close follow-up with PCP for diabetes management. Exam Vital Signs Temp Pulse Resp BP Pulse Ox O2 Del Method 98.1 F 90 25 H 112/60 100 Room Air 12/22/24 12:01 12/22/24 14:12/22/24 14:12/22/24 14:12/22/24 14:12/22/24 12:01 Narrative Exam Physical Exam: GENERAL: Awake, answering questions appropriately, appears stated age HEENT: NC/AT. Moist mucosa. PERRLA/EOMI. CARDIO: Heart RRR, no obvious murmurs, no JVD. PULM: No coughing or visible SOB. Lungs CTA B/L. GI: Abdomen soft, NT/ND, +BS. SKIN/MSK/EXT: No wounds/discoloration/rashes/edema/amputations. +Pedal pulses present B/L. NEURO: Oriented x3, Moves extremities x4 and no focal neurological deficits noted Objective Labs 12/22/24 04:20 12/22/24 10:32 Labs: Laboratory Results - last 24 hr 12/21/24 12/21/24 12/21/24 14:49 18:10 18:10 WBC RBC Hgb Hct MCV MCH MCHC RDW Std Deviation Plt Count Neut % (Auto) Lymph % (Auto) [place] % (Auto) Eos % (Auto) Baso % (Auto) Neut # (Auto) Lymph # (Auto) [place] # (Auto) Eos # (Auto) Baso # (Auto) Immature Gran # (Auto) Absolute Nucleated RBC Immature Gran % Nucleated RBC % VBG pH 7.19 L VBG pCO2 20 L VBG pO2 46 VBG O2 Sat (Richie) 82 L VBG Base Excess -19 L Sodium 140 Potassium 4.1 D Chloride 109 H Carbon Dioxide < 10.0 L* Anion Gap 21 H BUN 17 Creatinine 1.2 Estim Creat Clear Calc 48.5 L eGFR 284 BUN/Creatinine Ratio 14 Glucose [address] Glu mg/dL 312 H Hemoglobin A1c 12.5 H Calculated Osmolality 290 Lactic Acid 1.4 Calcium 9.0 Corrected Calcium 9.0 Phosphorus 4.3 1.2 L 1.1 L Magnesium 2.3 1.8 Total Bilirubin AST ALT Alkaline Phosphatase Total Protein Albumin 4.4 D Globulin Albumin/Globulin Ratio Triglycerides Cholesterol LDL Cholesterol, Calc HDL Cholesterol Cholesterol/HDL Ratio Beta-Hydroxybutyrate/Acetoacetate TSH 12/21/24 12/22/24 12/22/24 22:37 02:41 04:20 WBC 13.9 H D RBC 3.51 L Hgb 9.9 L D Hct 29.1 L D MCV 83 MCH 28.2 MCHC 34.0 RDW Std Deviation 40.6 Plt Count 273 D Neut % (Auto) 73 Lymph % (Auto) 19 [place] % (Auto) 8 Eos % (Auto) 0 Baso % (Auto) 0 Neut # (Auto) 10.0 H Lymph # (Auto) 2.6 [place] # (Auto) 1.1 H Eos # (Auto) 0.0 Baso # (Auto) 0.0 Immature Gran # (Auto) 0.06 H Absolute Nucleated RBC 0.00 Immature Gran % 0 Nucleated RBC % 0 VBG pH VBG pCO2 VBG pO2 VBG O2 Sat (Richie) VBG Base Excess Sodium 139 141 141 Potassium 4.0 3.9 3.7 Chloride 111 H 113 H 114 H Carbon Dioxide 15.5 L 17.5 L 19.6 L Anion Gap 13 11 7 BUN 16 16 16 Creatinine 1.0 0.9 0.9 Estim Creat Clear Calc 58.2 L 64.6 65.1 eGFR > 60 > 60 > 60 BUN/Creatinine Ratio 16 18 18 Glucose 222 H D 131 H D [address] Glu mg/dL Hemoglobin A1c Calculated Osmolality 285 284 285 Lactic Acid Calcium 8.7 8.6 8.5 Corrected Calcium 8.8 8.7 8.9 Phosphorus 0.7 L* 2.1 L 2.1 L Magnesium 1.6 1.5 L 1.6 Total Bilirubin 0.4 AST < 10 ALT < 7 L Alkaline Phosphatase 72 D Total Protein 6.0 Albumin 3.9 D 3.9 3.5 Globulin 2.5 Albumin/Globulin Ratio 1.4 Triglycerides 80 Cholesterol 125 L LDL Cholesterol, Calc 72 HDL Cholesterol 37 L Cholesterol/HDL Ratio 3.4 L Beta-Hydroxybutyrate/Acetoacetate 1.6 H TSH 0.46 L 12/22/24 10:32 WBC RBC Hgb Hct MCV MCH MCHC RDW Std Deviation Plt Count Neut % (Auto) Lymph % (Auto) [place] % (Auto) Eos % (Auto) Baso % (Auto) Neut # (Auto) Lymph # (Auto) [place] # (Auto) Eos # (Auto) Baso # (Auto) Immature Gran # (Auto) Absolute Nucleated RBC Immature Gran % Nucleated RBC % VBG pH VBG pCO2 VBG pO2 VBG O2 Sat (Richie) VBG Base Excess Sodium 138 Potassium 3.9 Chloride 110 H Carbon Dioxide 17.9 L Anion Gap 10 BUN 15 Creatinine 0.9 Estim Creat Clear Calc 65.1 eGFR > 60 BUN/Creatinine Ratio 17 Glucose [address] Glu mg/dL Hemoglobin A1c Calculated Osmolality 284 Lactic Acid Calcium 8.4 Corrected Calcium 9.0 Phosphorus 1.9 L Magnesium 1.6 Total Bilirubin AST ALT Alkaline Phosphatase Total Protein Albumin 3.3 L Globulin Albumin/Globulin Ratio Triglycerides Cholesterol LDL Cholesterol, Calc HDL Cholesterol Cholesterol/HDL Ratio Beta-Hydroxybutyrate/Acetoacetate TSH ABG Interpretation ABG results: 12/21/24 12/21/24 15:06 18:10 ABG pH 7.15 L* ABG pCO2 12 L* ABG pO2 138 H ABG HCO3 4 L* ABG O2 Saturation 99 H ABG Base Excess -22 L VBG pH 7.19 L VBG pCO2 20 L VBG pO2 46 VBG Base Excess -19 L Quality Measures Quality Measures none Assessment & Plan Assessment Current Active Medications: Generic Name Dose Route Start Last Admin Trade Name Freq PRN Reason Stop Dose Admin Acetaminophen 650 mg 12/21/24 15:04 Acetaminophen 325 Mg Tablet PO 01/20/25 15:03 Q6H PRN Pain 1-3 or Fever >100.3 Dextrose 25 ml 12/22/24 06:40 Dextrose 50%-Water Inj 50 Ml Syringe IV 01/21/25 06:39 Q15MIN PRN BG 50-70 responsive npo pt Dextrose 50 ml 12/22/24 06:40 Dextrose 50%-Water Inj 50 Ml Syringe IV 01/21/25 06:39 Q15MIN PRN BG <50 OR BG <70 & pt unresponsive Enoxaparin Sodium 40 mg 12/21/24 21:00 12/21/24 21:16 Enoxaparin Sod Inj 40 Mg/0.4 Ml Syringe SC 01/04/25 20:59 40 mg HS EDENILSON Administration Glucagon 1 mg 12/22/24 06:40 Glucagon Inj 1 Mg Vial IM Q15MIN PRN BG <70, and no IV access Insulin Glargine 35 unit 12/22/24 21:00 Insulin Glargine (Lantus) 5 Unit/0.05 Ml (Per 5 Units) SC 01/21/25 20:59 BID [facility] Insulin Human Lispro 0 unit 12/22/24 07:30 12/22/24 11:30 Insulin Lispro (Admelog) 1 Unit/0.01 Ml Unit SC 01/21/25 07:29 5 unit AC [facility] Administration Protocol Insulin Human Lispro 10 unit 12/22/24 17:30 Insulin Lispro (Admelog) 1 Unit/0.01 Ml Unit SC 01/21/25 17:29 TIDWM [facility] Ondansetron HCl 4 mg 12/21/24 15:10 Ondansetron Inj 2 Mg/Ml Inj 2 Ml IV 01/20/25 15:09 Q6H PRN NAUSEA OR VOMITING Protocol Pantoprazole Sodium 40 mg 12/21/24 21:00 12/21/24 21:17 Pantoprazole Inj 40 Mg Vial IVP 01/20/25 20:59 40 mg HS EDENILSON Administration Plan 49-year-old female with a past medical history of hypertension, hyperlipidemia, type 2 diabetes on insulin who presented to the ED on 12/21/2024 with complaints of abdominal pain, nausea vomiting and generalized weakness. Admitted to ICU for DKA management #Diabetic ketoacidosis #Leukocytosis, likely reactive; downtrending #Ketonuria #Polyuria #Uncontrolled, insulin-dependent type 2 diabetes mellitus The patient presented with nausea, vomiting, abdominal pain and weakness of about 2 days duration. She has a history of type II DM and is on insulin documented to 25 units at night but patient states she uses up to 60 units in addition to 12 to 15 units with meals. She also uses metformin 1 g daily. Per patient, her last A1c was about 10 and she follows up with her PCP. A1c today- 12.5 Initial blood glucose on admission-436. CMP showed metabolic acidosis with an anion gap. Potassium within normal limits at 4.6. BHB-6.1 WBC on admission-25.4. No fevers on admission, the patient reports subjective fever/chills. Examination cerrato, lungs are clear to auscultation. Urinalysis negative for UTI Admitted for DKA management with IV fluids and insulin drip; received 6L IVF Plan: Continue insulin regimen; Lantus 35u BID, Lispro 10u TID pre-meal and SSI Monitor with morning labs Diabetic education, x ray equipment servicer consultation - appreciate recommendations #Anion gap metabolic acidosis, resolved #Diabetic ketoacidosis, resolved #Lactic acidosis, resolved CMP significant for bicarb of 4 with normal sodium and potassium and anion gap of 29. Lactic acid-3.3 ABG: pH-7.15, pCO2 12, HCO3 4 Anion-gap has closed since 12/21/24 22:37 x4 Plan: Monitor with morning labs #Acute kidney injury, resolved #Prerenal azotemia, resolved The patient reports decreased oral intake for the last 2 days as well as vomiting and diarrhea. On admission, creatinine-1.5. Baseline unknown Current Cr of 0.9 Plan: Avoid nephrotoxic medications Continue monitoring renal panel #Hypertension The patient has a history of hypertension, at home she is on hydrochlorothiazide. Will continue monitoring blood pressure and start antihypertensive if necessary. Currently normotensive Plan: Will continue to monitor vital signs and start when appropriate #Gastroenteritis The patient reports a 2-day history of vomiting and diarrhea. No recent travel or sick contacts. No other present home having similar symptoms. Diarrhea seems to be resolving Blood culture negative within 24 hours Plan IV fluid replacement Stool WBC uncollected #Renal calculi CT abdomen pelvis on admission showed a 6 mm calculus in the right renal pelvis but negative for an intraabdominal process Patient did have abdominal pain, likely due to DKA - which has now resolved No elevated calcium on labs IV hydration completed as above Plan: Will monitor for acute changes in urine output or changes/worsening of symptomatic pain Health Management: Diet: Carb consistent Lines: PIV Bowel: Senna GI Prophylaxis: Protonix DVT Prophylaxis: Lovenox Dispo: Monitoring AG, DKA gap closed, Diabetic education Code: Full Patient seen and examined with attending Dr. Aburto and senior resident Dr. Jeffy Galloway, PGY-1 Attending Provider Attestation/Addendum I have examined the patient, reviewed labs and imaging findings, discussed the case with the resident(s), and reviewed entered orders. I agree with the plan of care as outlined in this note. Dr. Criselda MD
--- NOTE | 2024-12-22 15:22 | PD.RESPRO ---
Documentation for date of: 12/22/24 Subjective Subjective Interval history: Patient was examined bedside this morning, she was comfortably sitting in bed. Gap closed twice. Started her on glargine 35 twice daily with lispro 10 3 times daily with meals. Patient is denying any new complaints. Patient is being downgraded to medical floors. Team C has accepted the patient. Exam Vital Signs Temp Pulse Resp BP Pulse Ox O2 Del Method 98.1 F 90 25 H 112/60 100 Room Air 12/22/24 12:01 12/22/24 14:00 12/22/24 14:00 12/22/24 14:00 12/22/24 14:00 12/22/24 12:01 Narrative Exam GENERAL: Comfortable adult seen resting comfortably in hospital bed, no acute distress VITALS: All vitals were reviewed and the pulse ox is 98% on room air HEENT: Normocephalic, atraumatic. Pupils are equal and reactive. Oral mucosa is moist. NECK: Supple, nontender, no JVD CHEST: Symmetrical, atraumatic and with equal expansion ,Nontender on palpation CARDIOVASCULAR: Heart regular rhythm & rate. S1/S2. no murmur or gallop rub or extra beats. LUNGS: Clear to auscultation bilaterally with symmetrical chest rise. No laboring tachypnea or wheezing. No intercostal subcostal retraction. No rales and no rhonchi. ABDOMEN: Soft, flat, nontender to palpation, no guarding or rebound tenderness. Active and normal bowel sounds. EXTREMITIES:Moves all 4 extremities,No B/L LE edema. SKIN: Warm and dry, no jaundice or rashes noted. NEURO: Patient is AO x 3, Cranial nerves II through XII grossly intact. There is no focal neurologic deficits noted. PSYCHIATRIC: Patient is in normal mood, cooperative, no SI or HI or hallucinations. Objective Labs 12/22/24 04:20 12/22/24 10:32 Labs: Laboratory Results - last 24 hr 12/21/24 12/21/24 12/21/24 14:49 18:10 18:10 WBC RBC Hgb Hct MCV MCH MCHC RDW Std Deviation Plt Count Neut % (Auto) Lymph % (Auto) [place] % (Auto) Eos % (Auto) Baso % (Auto) Neut # (Auto) Lymph # (Auto) [place] # (Auto) Eos # (Auto) Baso # (Auto) Immature Gran # (Auto) Absolute Nucleated RBC Immature Gran % Nucleated RBC % VBG pH 7.19 L VBG pCO2 20 L VBG pO2 46 VBG O2 Sat (Richie) 82 L VBG Base Excess -19 L Sodium 140 Potassium 4.1 D Chloride 109 H Carbon Dioxide < 10.0 L* Anion Gap 21 H BUN 17 Creatinine 1.2 Estim Creat Clear Calc 48.5 L eGFR 284 BUN/Creatinine Ratio 14 Glucose [address] Glu mg/dL 312 H Hemoglobin A1c 12.5 H Calculated Osmolality 290 Lactic Acid 1.4 Calcium 9.0 Corrected Calcium 9.0 Phosphorus 4.3 1.2 L 1.1 L Magnesium 2.3 1.8 Total Bilirubin AST ALT Alkaline Phosphatase Total Protein Albumin 4.4 D Globulin Albumin/Globulin Ratio Triglycerides Cholesterol LDL Cholesterol, Calc HDL Cholesterol Cholesterol/HDL Ratio Beta-Hydroxybutyrate/Acetoacetate TSH 12/21/24 12/22/24 12/22/24 22:37 02:41 04:20 WBC 13.9 H D RBC 3.51 L Hgb 9.9 L D Hct 29.1 L D MCV 83 MCH 28.2 MCHC 34.0 RDW Std Deviation 40.6 Plt Count 273 D Neut % (Auto) 73 Lymph % (Auto) 19 [place] % (Auto) 8 Eos % (Auto) 0 Baso % (Auto) 0 Neut # (Auto) 10.0 H Lymph # (Auto) 2.6 [place] # (Auto) 1.1 H Eos # (Auto) 0.0 Baso # (Auto) 0.0 Immature Gran # (Auto) 0.06 H Absolute Nucleated RBC 0.00 Immature Gran % 0 Nucleated RBC % 0 VBG pH VBG pCO2 VBG pO2 VBG O2 Sat (Richie) VBG Base Excess Sodium 139 141 141 Potassium 4.0 3.9 3.7 Chloride 111 H 113 H 114 H Carbon Dioxide 15.5 L 17.5 L 19.6 L Anion Gap 13 11 7 BUN 16 16 16 Creatinine 1.0 0.9 0.9 Estim Creat Clear Calc 58.2 L 64.6 65.1 eGFR > 60 > 60 > 60 BUN/Creatinine Ratio 16 18 18 Glucose 222 H D 131 H D [address] Glu mg/dL Hemoglobin A1c Calculated Osmolality 285 284 285 Lactic Acid Calcium 8.7 8.6 8.5 Corrected Calcium 8.8 8.7 8.9 Phosphorus 0.7 L* 2.1 L 2.1 L Magnesium 1.6 1.5 L 1.6 Total Bilirubin 0.4 AST < 10 ALT < 7 L Alkaline Phosphatase 72 D Total Protein 6.0 Albumin 3.9 D 3.9 3.5 Globulin 2.5 Albumin/Globulin Ratio 1.4 Triglycerides 80 Cholesterol 125 L LDL Cholesterol, Calc 72 HDL Cholesterol 37 L Cholesterol/HDL Ratio 3.4 L Beta-Hydroxybutyrate/Acetoacetate 1.6 H TSH 0.46 L 12/22/24 10:32 WBC RBC Hgb Hct MCV MCH MCHC RDW Std Deviation Plt Count Neut % (Auto) Lymph % (Auto) [place] % (Auto) Eos % (Auto) Baso % (Auto) Neut # (Auto) Lymph # (Auto) [place] # (Auto) Eos # (Auto) Baso # (Auto) Immature Gran # (Auto) Absolute Nucleated RBC Immature Gran % Nucleated RBC % VBG pH VBG pCO2 VBG pO2 VBG O2 Sat (Richie) VBG Base Excess Sodium 138 Potassium 3.9 Chloride 110 H Carbon Dioxide 17.9 L Anion Gap 10 BUN 15 Creatinine 0.9 Estim Creat Clear Calc 65.1 eGFR > 60 BUN/Creatinine Ratio 17 Glucose [address] Glu mg/dL Hemoglobin A1c Calculated Osmolality 284 Lactic Acid Calcium 8.4 Corrected Calcium 9.0 Phosphorus 1.9 L Magnesium 1.6 Total Bilirubin AST ALT Alkaline Phosphatase Total Protein Albumin 3.3 L Globulin Albumin/Globulin Ratio Triglycerides Cholesterol LDL Cholesterol, Calc HDL Cholesterol Cholesterol/HDL Ratio Beta-Hydroxybutyrate/Acetoacetate TSH ABG Interpretation ABG results: 12/21/24 12/21/24 15:06 18:10 ABG pH 7.15 L* ABG pCO2 12 L* ABG pO2 138 H ABG HCO3 4 L* ABG O2 Saturation 99 H ABG Base Excess -22 L VBG pH 7.19 L VBG pCO2 20 L VBG pO2 46 VBG Base Excess -19 L Quality Measures Quality Measures none Assessment & Plan Assessment Current Active Medications: Generic Name Dose Route Start Last Admin Trade Name Freq PRN Reason Stop Dose Admin Acetaminophen 650 mg 12/21/24 15:04 Acetaminophen 325 Mg Tablet PO 01/20/25 15:03 Q6H PRN Pain 1-3 or Fever >100.3 Dextrose 25 ml 12/22/24 06:40 Dextrose 50%-Water Inj 50 Ml Syringe IV 01/21/25 06:39 Q15MIN PRN BG 50-70 responsive npo pt Dextrose 50 ml 12/22/24 06:40 Dextrose 50%-Water Inj 50 Ml Syringe IV 01/21/25 06:39 Q15MIN PRN BG <50 OR BG <70 & pt unresponsive Enoxaparin Sodium 40 mg 12/21/24 21:00 12/21/24 21:16 Enoxaparin Sod Inj 40 Mg/0.4 Ml Syringe SC 01/04/25 20:59 40 mg HS EDENILSON Administration Glucagon 1 mg 12/22/24 06:40 Glucagon Inj 1 Mg Vial IM Q15MIN PRN BG <70, and no IV access Insulin Glargine 35 unit 12/22/24 21:00 Insulin Glargine (Lantus) 5 Unit/0.05 Ml (Per 5 Units) SC 01/21/25 20:59 BID EDENILSON Insulin Human Lispro 0 unit 12/22/24 07:30 12/22/24 11:30 Insulin Lispro (Admelog) 1 Unit/0.01 Ml Unit SC 01/21/25 07:29 5 unit AC EDENILSON Administration Protocol Insulin Human Lispro 10 unit 12/22/24 17:30 Insulin Lispro (Admelog) 1 Unit/0.01 Ml Unit SC 01/21/25 17:29 TIDWM EDENILSON Ondansetron HCl 4 mg 12/21/24 15:10 Ondansetron Inj 2 Mg/Ml Inj 2 Ml IV 01/20/25 15:09 Q6H PRN NAUSEA OR VOMITING Protocol Pantoprazole Sodium 40 mg 12/21/24 21:00 12/21/24 21:17 Pantoprazole Inj 40 Mg Vial IVP 01/20/25 20:59 40 mg HS EDENILSON Administration Plan The patient is a 49-year-old female with a past medical history of hypertension, hyperlipidemia, type 2 diabetes on insulin who presented to the ED on 12/21/2024 with complaints of abdominal pain, nausea vomiting and generalized weakness. Admitted to ICU for DKA management NEURO: Stable CVS # History of hypertension The patient has a history of hypertension, at home she is on hydrochlorothiazide. Admission, initial vitals showed a blood pressure of 130/91. On examination, blood pressure was elevated at 154/96. Will continue monitoring blood pressure and start antihypertensive if necessary. Today her blood pressure is stable on 112/60 Pulm: Stable Renal: #Anion gap metabolic acidosis- resolved #Diabetic ketoacidosis- resolved #Lactic acidosis- resolved on admission, CMP significant for bicarb of 4 with normal sodium and potassium and anion gap of 29. Lactic acid-3.3 ABG: pH-7.15, pCO2 12, HCO3 4 12/22/2024: Anion gap closed, started her on insulin glargine 35 twice daily, lispro 10 3 times daily with insulin sliding scale. Diabetic diet. #Acute kidney injury- resolved #Prerenal azotemia- resolved On admission The patient reports decreased oral intake for the last 2 days as well as vomiting and diarrhea. , creatinine-1.5. Baseline unknown, resolved with iv fluids -Avoid nephrotoxic medications -Continue monitoring renal panel GI: #Diarrhea- resolved The patient reports a 2-day history of vomiting and diarrhea. No recent travel or sick contacts. No other present home having similar symptoms. Continue to monitor Endo: #Diabetic ketoacidosis- resolved #Ketonuria #Polyuria #Uncontrolled diabetes mellitus The patient presented with nausea, vomiting, abdominal pain and weakness of about 2 days duration. She has a history of type II DM and is on insulin documented to 25 units at night but patient states she uses up to 60 units in addition to 12 to 15 units with meals. She also uses metformin 1 g daily. Per patient, her last A1c was about 10 and she follows up with her PCP. A1c today- 12.5 Initial blood glucose on admission-436. CMP showed metabolic acidosis with an anion gap. Potassium within normal limits at 4.6. BHB-6.1 Admitted for DKA management with IV fluids and insulin drip. Transition to SC insulin , insulin glargine 35 BID and Lispro TIDWM Urology: #Renal calculi CT abdomen pelvis on admission showed a 6 mm calculus in the right renal pelvis Patient does have abdominal pain, but likely due to DKA Follow up outpatient with PCP Heme/Onc: #Leukocytosis, likely reactive- resolving WBC on admission-25.4. , today 13.9 No fevers on admission, the patient reports subjective fever/chills. Examination cerrato, lungs are clear to auscultation. Urinalysis negative for UTI Continue to monitor CBC Infectious: Patient has resolving diarrhea, but no other signs of infection besides leukocytosis which is likely reactive. Health maintenance: Dispo: Downgraded to floors Diet: Diabetic GI: none DVT: Lovenox Lines: Peripheral Code: Full Case was discussed with attending physician, Dr Wiliam Marvin MD,PGY-3 Attending Provider Attestation/Addendum Patient seen and examined with the above resident, Ann Marvin MD. I agree with the findings, assessment, and plan of care as documented except for any differences below. Patient with closed AG and normalization of HCO3. Transitioned to lantus and insulin with meals. Patient tolerated diet. Stopped IVF and patient is ready for transition to medicine russo for ongoing management prior to discharge. Patient counseled on significance of continue HbA1c elevation and transiton to BID dosing of lantus. Will need PCP follow up for optimal regimen. Total critical care time: I personally spent 35 minutes for review of physiologic parameters, directing plan of care, coordination of care with other specialists, and counseling patient at the bedside.. This is exclusive of time spent teaching housestaff or performing any separate billable procedures. Patient remained at risk for further morbidity and mortality warranting ongoing care and management only available in the intensive care unit.
[2024-12-22] MEDS: INSULIN LISPRO (AdmeLOG) 1 UNIT/0.01 ML UNIT 10 UNIT SC (17:09)
[2024-12-22] MEDS: ENOXAPARIN SOD INJ 40 MG/0.4 ML SYRINGE SC (21:17)
[2024-12-23 04:33] VITALS: BP 109/70; PULSE 72; RESP 17; TEMP 36.1; O2SAT 100
[2024-12-23 06:00] VITALS: BMI 26.0
[2024-12-23 06:02] LABS: Basophils % (Auto) 1 % (0-2.5); Eosinophils # (Auto) 0.1 Thou/mm3 (0.0-0.5); Eosinophils % (Auto) 1 % (0-10); Hematocrit 29.6 % (36.0-46.0); Hemoglobin 10.2 g/dL (12.0-16.0); Immature Granulocytes % (Auto) 0 % (0-0); Immature Granulocytes Auto 0.02 Thou/mm3 (0.00-0.00); Lymphocytes # (Auto) 3.6 Thou/mm3 (1.0-4.8); Lymphocytes % (Auto) 42 % (10-50); Mean Corpuscular HGB Conc 34.5 g/dl (31.0-37.0); Mean Corpuscular Hemoglobin 28.1 pg (25.0-35.0); Mean Corpuscular Volume 82 fL (80-100); Monocytes # (Auto) 0.5 Thou/mm3 (0.0-0.8); Monocytes % (Auto) 6 % (0-12); Neutrophils # (Auto) 4.3 Thou/mm3 (1.8-7.7); Neutrophils % (Auto) 50 % (37-80); Nucleated Red Blood Cell % 0 /100 WBC (0); Platelet Count 250 Thou/mm3 (140-440); RDW Standard Deviation 41.6 fL (36.4-46.3); Red Blood Count 3.63 Miln/mm3 (4.00-5.20); White Blood Count 8.5 Thou/mm3 (3.6-11.0)
[2024-12-23] MEDS: ACETAMINOPHEN 325 MG TABLET 650 MG PO (06:46)
[2024-12-23 06:57] LABS: Alanine Aminotransferase 9 U/L (10-49); Albumin, Serum 3.5 gm/dL (3.5-5.0); Albumin/Globulin Ratio 1.5 (1.2-2.2); Alkaline Phosphatase 71 U/L (46-116); Anion Gap 8 (7-16); Aspartate Amino Transferase 14 U/L (0-34); BUN/Creatinine Ratio 17 Ratio (12-20); Bilirubin,Total 0.3 mg/dL (0.3-1.2); Blood Urea Nitrogen 10 mg/dL (9-23); Calcium 8.7 mg/dL (8.3-10.6); Calcium (Corrected) 9.1 mg/dL (8.5-10.1); Carbon Dioxide 25.5 mMol/L (20.0-31.0); Chloride 110 mMol/L (98-107); Creatinine (Component) 0.6 mg/dL (0.6-1.3); Estimated Creatinine Clearance 98.3 mL/min (>60); Globulin 2.4 gm/dL (2.3-3.5); Glucose 61 mg/dL (74-106); Osmolality,Calculated 281 (275-295); Potassium 3.5 mMol/L (3.4-5.1); Sodium 143 mMol/L (136-145); Total Protein 5.9 gm/dL (5.7-8.2); eGFR > 60 See Note
[2024-12-23 07:24] VITALS: PULSE 76; RESP 17; RESP 95
[2024-12-23] MEDS: Magnesium Sulfate 4 GM Ivpb 4 GM/50 ML BAG IV (08:46)
[2024-12-23] MEDS: INSULIN GLARGINE (Lantus) 5 UNIT/0.05 ML (PER 5 UNITS) 35 UNIT SC (08:46)
[2024-12-23] MEDS: SENNA TABLET 1 TAB PO (08:47)
[2024-12-23 09:19] VITALS: BP 121/76; PULSE 88; RESP 18; TEMP 36.6; O2SAT 99
--- NOTE | 2024-12-23 09:46 | ESPR_ITS ---
<Statement entered by Jessica Bardales MD - 12/23/24 17:13> Patient was seen and examined by me personally. I have directly supervised and reviewed documentation by the team resident and agree with its findings with any exceptions or additional findings as below. Plan of care was discussed with the attending, Dr. Aburto. Patient had low blood glucose this morning in the 60s and was given juice and carbs, glucose improved to 100s. Morning dose of lispro 10 U was not given. Glucose then went up to 300s. Will keep the patient another day to optimize blood sugar control. Additionally, will stop glargine 35 U BID dosing and instead do 50 U HS starting tomorrow. Since the patient received 35 U this morning, additional 15 U scheduled for tonight. Jessica Bardales, PGY-2 Documentation for date of: 12/23/24 Subjective Subjective Interval history: 12/23/2024: Overnight the patient's blood glucose was on the lower side, 60s as a result the patient was given IV glucose which increased her to 120. This morning, patient's lispro was also held but she then had a spike in her glucose levels in the 300s. Discussed insulin regimen pharmacy and recommendation is to change the long-acting Lantus to a nightly regimen. As such, we will change her insulin regimen to 50 units of Lantus at bedtime, 10 units lispro Premeal along with sliding scale insulin. Will continue to monitor the patient overnight and make sure her blood sugar levels are well-controlled prior to discharge. Patient otherwise does not report any concerning symptoms such as nausea/vomiting/diarrhea, chest pain, palpitations or any shortness of breath. Exam Vital Signs Temp Pulse Resp BP Pulse Ox O2 Del Method 97.8 F 88 18 121/76 99 Room Air 12/23/24 09:19 12/23/24 09:19 12/23/24 09:19 12/23/24 09:19 12/23/24 09:19 12/23/24 09:19 Narrative Exam Physical Exam: GENERAL: Awake, answering questions appropriately, appears stated age HEENT: NC/AT. Moist mucosa. PERRLA/EOMI. CARDIO: Heart RRR, no obvious murmurs, no JVD. PULM: No coughing or visible SOB. Lungs CTA B/L. GI: Abdomen soft, NT/ND, +BS. SKIN/MSK/EXT: No wounds/discoloration/rashes/edema/amputations. +Pedal pulses present B/L. NEURO: Oriented x3, Moves extremities x4 and no focal neurological deficits noted Objective Labs 12/24/24 05:38 12/24/24 05:38 Labs: Laboratory Results - last 24 hr 12/22/24 12/23/24 10:32 04:37 WBC 8.5 D RBC 3.63 L Hgb 10.2 L Hct 29.6 L MCV 82 MCH 28.1 MCHC 34.5 RDW Std Deviation 41.6 Plt Count 250 Neut % (Auto) 50 Lymph % (Auto) 42 [place] % (Auto) 6 Eos % (Auto) 1 Baso % (Auto) 1 Neut # (Auto) 4.3 Lymph # (Auto) 3.6 [place] # (Auto) 0.5 Eos # (Auto) 0.1 Baso # (Auto) 0.0 Immature Gran # (Auto) 0.02 H Absolute Nucleated RBC 0.00 Immature Gran % 0 Nucleated RBC % 0 Sodium 138 143 Potassium 3.9 3.5 Chloride 110 H 110 H Carbon Dioxide 17.9 L 25.5 Anion Gap 10 8 BUN 15 10 Creatinine 0.9 0.6 Estim Creat Clear Calc 65.1 98.3 eGFR > 60 > 60 BUN/Creatinine Ratio 17 17 Glucose 251 H D 61 L D Calculated Osmolality 284 281 Calcium 8.4 8.7 Corrected Calcium 9.0 9.1 Phosphorus 1.9 L Magnesium 1.6 Total Bilirubin 0.3 AST 14 ALT 9 L Alkaline Phosphatase 71 Total Protein 5.9 Albumin 3.3 L 3.5 Globulin 2.4 Albumin/Globulin Ratio 1.5 ABG Interpretation ABG results: 12/21/24 12/21/24 15:06 18:10 ABG pH 7.15 L* ABG pCO2 12 L* ABG pO2 138 H ABG HCO3 4 L* ABG O2 Saturation 99 H ABG Base Excess -22 L VBG pH 7.19 L VBG pCO2 20 L VBG pO2 46 VBG Base Excess -19 L Quality Measures Quality Measures none Assessment & Plan Assessment Current Active Medications: Generic Name Dose Route Start Last Admin Trade Name Freq PRN Reason Stop Dose Admin Acetaminophen 650 mg 12/21/24 15:04 12/23/24 06:46 Acetaminophen 325 Mg Tablet PO 01/20/25 15:03 650 mg Q6H PRN Administration Pain 1-3 or Fever >100.3 Dextrose 25 ml 12/22/24 06:40 Dextrose 50%-Water Inj 50 Ml Syringe IV 01/21/25 06:39 Q15MIN PRN BG 50-70 responsive npo pt Dextrose 50 ml 12/22/24 06:40 Dextrose 50%-Water Inj 50 Ml Syringe IV 01/21/25 06:39 Q15MIN PRN BG <50 OR BG <70 & pt unresponsive Enoxaparin Sodium 40 mg 12/21/24 21:00 12/22/24 21:17 Enoxaparin Sod Inj 40 Mg/0.4 Ml Syringe SC 01/04/25 20:59 40 mg HS EDENILSON Administration Glucagon 1 mg 12/22/24 06:40 Glucagon Inj 1 Mg Vial IM Q15MIN PRN BG <70, and no IV access Magnesium Sulfate 4 gm in 50 mls @ 12.5 mls/hr 12/23/24 08:19 12/23/24 08:46 Magnesium Sulfate Ivpb IV 12/23/24 12:18 12.5 mls/hr X1 ONE Administration Insulin Glargine 50 unit 12/24/24 21:00 Insulin Glargine (Lantus) 5 Unit/0.05 Ml (Per 5 Units) SC 01/23/25 20:59 [facility] Insulin Glargine 15 unit 12/23/24 21:00 Insulin Glargine (Lantus) 5 Unit/0.05 Ml (Per 5 Units) SC 12/23/24 21:01 X1 ONE Insulin Human Lispro 0 unit 12/22/24 07:30 12/23/24 07:25 Insulin Lispro (Admelog) 1 Unit/0.01 Ml Unit SC 01/21/25 07:29 Not Given AC [facility] Protocol Insulin Human Lispro 10 unit 12/22/24 17:30 12/23/24 07:53 Insulin Lispro (Admelog) 1 Unit/0.01 Ml Unit SC 01/21/25 17:29 Not Given TIDWM [facility] Ondansetron HCl 4 mg 12/21/24 15:10 Ondansetron Inj 2 Mg/Ml Inj 2 Ml IV 01/20/25 15:09 Q6H PRN NAUSEA OR VOMITING Protocol Sennosides 1 tab 12/23/24 09:00 12/23/24 08:47 Senna Tablet PO 01/22/25 08:59 1 tab QDAY EDENILSON Administration Protocol Plan 49-year-old female with a past medical history of hypertension, hyperlipidemia, type 2 diabetes on insulin who presented to the ED on 12/21/2024 with complaints of abdominal pain, nausea vomiting and generalized weakness. Admitted to ICU for DKA management #Diabetic ketoacidosis #Leukocytosis, likely reactive; downtrending #Ketonuria #Polyuria #Uncontrolled, insulin-dependent type 2 diabetes mellitus The patient presented with nausea, vomiting, abdominal pain and weakness of about 2 days duration. She has a history of type II DM and is on insulin documented to 25 units at night but patient states she uses up to 60 units in addition to 12 to 15 units with meals. She also uses metformin 1 g daily. Per patient, her last A1c was about 10 and she follows up with her PCP. A1c today- 12.5 Initial blood glucose on admission-436. CMP showed metabolic acidosis with an anion gap. Potassium within normal limits at 4.6. BHB-6.1 WBC on admission-25.4. No fevers on admission, the patient reports subjective fever/chills. Examination cerrato, lungs are clear to auscultation. Urinalysis negative for UTI Admitted for DKA management with IV fluids and insulin drip; received 6L IVF Patient denies CGM at this time; moreover, would prefer pricking herself. Counseled her on the importance of CGM and how some of the alarms can be turned off, but the patient ultimately does not want CGM. Plan: Changed insulin regimen to 50 units Lantus at bedtime, 10 units of lispro 3 times daily with meals and sliding scale insulin Monitor with morning labs Diabetic education, liquid floor and wall applier consultation - appreciate recommendations #Anion gap metabolic acidosis, resolved #Diabetic ketoacidosis, resolved #Lactic acidosis, resolved CMP significant for bicarb of 4 with normal sodium and potassium and anion gap of 29. Lactic acid-3.3 ABG: pH-7.15, pCO2 12, HCO3 4 Anion-gap has closed since 12/21/24 22:37 x4 Plan: Monitor with morning labs #Acute kidney injury, resolved #Prerenal azotemia, resolved The patient reports decreased oral intake for the last 2 days as well as vomiting and diarrhea. On admission, creatinine-1.5. Baseline unknown Current Cr of 0.9 Plan: Avoid nephrotoxic medications Continue monitoring renal panel #Hypertension The patient has a history of hypertension, at home she is on hydrochlorothiazide. Will continue monitoring blood pressure and start antihypertensive if necessary. Currently normotensive Plan: Will continue to monitor vital signs and start when appropriate #Gastroenteritis, resolved The patient reports a 2-day history of vomiting and diarrhea. No recent travel or sick contacts. No other present home having similar symptoms. Diarrhea seems to be resolving Blood culture negative within 48 hours Plan Will monitor for any acute changes #Renal calculi CT abdomen pelvis on admission showed a 6 mm calculus in the right renal pelvis but negative for an intraabdominal process Patient did have abdominal pain, likely due to DKA - which has now resolved No elevated calcium on labs IV hydration completed as above Plan: Will monitor for acute changes in urine output or changes/worsening of symptomatic pain Health Management: Diet: Carb consistent Lines: PIV Bowel: Senna GI Prophylaxis: Protonix DVT Prophylaxis: Lovenox Dispo: Monitoring AG, DKA gap closed, Diabetic education Code: Full Patient seen and examined with attending Dr. Aburto and senior resident Dr. Jeffy Galloway, PGY-1 Attending Provider Attestation/Addendum I have examined the patient, reviewed labs and imaging findings, discussed the case with the resident(s), and reviewed entered orders. I agree with the plan of care as outlined in this note, with these additional summaries/recommendations: Patient seen at bedside. No acute overnight events. Patient was downgraded from ICU for diabetic ketoacidosis which has resolved. Patient has uncontrolled diabetes mellitus type 2. A1c 12.5%. Counseled on diabetes management at bedside. Hyperglycemia persists with blood sugars this morning in the 300s although no evidence of recurrence of DKA. We will continue to adjust basal bolus insulin regimen as needed. Patient will remain hospitalized for blood sugar optimization. Offered freestyle shahrzad but declined. Acute kidney injury resolved. Patient was noted to have renal calculi and right renal pelvis and can follow-up outpatient with PCP. Patient updated on the plan and in agreement. Anticipate discharge in the next 24 to 48 hours. Repeat hematology and chemistry panel in AM. Dr. Criselda MD
--- NOTE | 2024-12-23 10:24 | PC.SS ---
SS attempted to call the [facility] to make pt a follow up appointment but was unsuccessful. SS left voicemail with SS contact information.
[2024-12-23 11:00] VITALS: BP 118/67; PULSE 67; RESP 18; TEMP 36.2; O2SAT 97
[2024-12-23] MEDS: INSULIN LISPRO (AdmeLOG) 1 UNIT/0.01 ML UNIT 10 UNIT SC (11:48)
[2024-12-23] MEDS: INSULIN LISPRO (AdmeLOG) 1 UNIT/0.01 ML UNIT SC (11:50)
[2024-12-23 15:14] VITALS: BP 118/81; PULSE 88; RESP 18; TEMP 36.2; O2SAT 97
[2024-12-23] MEDS: ENOXAPARIN SOD INJ 40 MG/0.4 ML SYRINGE SC (21:41)
[2024-12-23] MEDS: INSULIN GLARGINE (Lantus) 5 UNIT/0.05 ML (PER 5 UNITS) 15 UNIT SC (21:43)
[2024-12-24 02:45] VITALS: PULSE 72; RESP 20; RESP 99
[2024-12-24 05:43] VITALS: BMI 27.8
--- NOTE | 2024-12-24 05:45 | PC.NURSE ---
called Dr. Flores regarding patient's Bedside glucose check of 55, patient is asymptomatic, no c/o dizziness, weakness, sweating, Alert and oriented x4, given patient carbs to recheck blood glucose in 30 minutes.
[2024-12-24 06:06] LABS: Basophils % (Auto) 1 % (0-2.5); Eosinophils # (Auto) 0.1 Thou/mm3 (0.0-0.5); Eosinophils % (Auto) 1 % (0-10); Hematocrit 32.3 % (36.0-46.0); Hemoglobin 10.9 g/dL (12.0-16.0); Immature Granulocytes % (Auto) 0 % (0-0); Immature Granulocytes Auto 0.01 Thou/mm3 (0.00-0.00); Lymphocytes # (Auto) 3.1 Thou/mm3 (1.0-4.8); Lymphocytes % (Auto) 47 % (10-50); Mean Corpuscular HGB Conc 33.7 g/dl (31.0-37.0); Mean Corpuscular Hemoglobin 27.5 pg (25.0-35.0); Mean Corpuscular Volume 82 fL (80-100); Monocytes # (Auto) 0.5 Thou/mm3 (0.0-0.8); Monocytes % (Auto) 7 % (0-12); Neutrophils # (Auto) 2.9 Thou/mm3 (1.8-7.7); Neutrophils % (Auto) 44 % (37-80); Nucleated Red Blood Cell % 0 /100 WBC (0); Platelet Count 250 Thou/mm3 (140-440); RDW Standard Deviation 41.1 fL (36.4-46.3); Red Blood Count 3.96 Miln/mm3 (4.00-5.20); White Blood Count 6.6 Thou/mm3 (3.6-11.0)
[2024-12-24 06:42] LABS: Alanine Aminotransferase 10 U/L (10-49); Albumin, Serum 3.5 gm/dL (3.5-5.0); Albumin/Globulin Ratio 1.5 (1.2-2.2); Alkaline Phosphatase 68 U/L (46-116); Anion Gap 6 (7-16); Aspartate Amino Transferase 14 U/L (0-34); BUN/Creatinine Ratio 18 Ratio (12-20); Bilirubin,Total 0.3 mg/dL (0.3-1.2); Blood Urea Nitrogen 7 mg/dL (9-23); Calcium 8.6 mg/dL (8.3-10.6); Carbon Dioxide 26.9 mMol/L (20.0-31.0); Chloride 110 mMol/L (98-107); Creatinine (Component) 0.4 mg/dL (0.6-1.3); Estimated Creatinine Clearance 152.1 mL/min (>60); Globulin 2.4 gm/dL (2.3-3.5); Glucose 52 mg/dL (74-106); Osmolality,Calculated 279 (275-295); Potassium 3.4 mMol/L (3.4-5.1); Sodium 143 mMol/L (136-145); Total Protein 5.9 gm/dL (5.7-8.2); eGFR > 60 See Note
[2024-12-24 06:51] VITALS: PULSE 73; RESP 18; RESP 99
[2024-12-24] MEDS: SENNA TABLET 1 TAB PO (09:06)
--- NOTE | 2024-12-24 09:29 | PC.SS ---
Follow up note: Control blood sugar. Pt will return home upon dc.
--- NOTE | 2024-12-24 14:42 | ESDS_ITS ---
<Statement entered by Jessica Bardales MD - 12/24/24 21:51> Patient was seen and examined by me personally. I have reviewed the below documentation by the team resident and agree with its findings with any exceptions as below. Discharge plan was discussed with the attending, Dr. Aburto. This morning, the patient continued to have low fasting glucose in the 50s. Discharge plan was discussed with patient. She will be discharged on Toujeo 40 U nightly, with Novolog sliding scale for meal times. Patient was counseled on use of CGM but adamantly refused, preferring to use fingerstick checks. Patient recommended to follow up with endocrinology as scheduled. Jessica Bardales, PGY-2 Planned Discharge Date 12/24/24 DS: Providers Provider Attending Provider on Admission: Wiliam Peña MD Attending Provider on DC: Tiago Galloway MD Discharging Provider: Tiago Galloway MD DS: Diagnosis Problem List Completed Was Problem List Reviewed/Reconciled?: Yes Hospital Course Hospital Course Hospital course: 49-year-old female with past medical history of hypertension, hyperlipidemia, type 2 diabetes on insulin presented to the ED on 12/21/2024 with complaints of abdominal pain, nausea and vomiting and generalized weakness. In the ED, patient was afebrile and blood pressure was normal, but significant lab findings included leukocytosis of 25.4, bicarb less than 10, anion gap of 29, creatinine 1.5, elevated lactic acid and elevated beta hydroxybutyrate. ABG completed showed pH of 7.15, pCO2 of 12 and bicarb of 4, CT abdomen pelvis showed a 6 mm calculus in the right renal pelvis. Patient was admitted to the ICU for DKA management with IV insulin drip and close monitoring. Upon anion gap being closed for 4 times; moreover, patient was downgraded to the hospital where insulin management was to include with. Patient was counseled on CGM use; however, preferred to use needles and checking it herself. Patient will be discharged with the following strict instructions to follow-up with endocrinology on December 2024. Please take your insulin as directed below. Follow-up with your PCP within 1-2 weeks after discharge; ask to be seen by [facility]. We recommend [facility]MAN-i/ARB treatment outpatient. Please only take your blood pressure medication after checking your blood pressure; if your BP is less than 120/80 do not take your Propranolol. Continue all your other home medications as prescribed. If your symptoms worsen or if you develop new dizziness, chest pain or shortness of breath - please come back to the ED immediately. Hospital Diagnosis: #Diabetic ketoacidosis #Leukocytosis, likely reactive; downtrending #Ketonuria #Polyuria #Uncontrolled, insulin-dependent type 2 diabetes mellitus #Anion gap metabolic acidosis, resolved #Diabetic ketoacidosis, resolved #Lactic acidosis, resolved #Acute kidney injury, resolved #Prerenal azotemia, resolved #Hypertension #Gastroenteritis, resolved #Renal calculi Tiago Galloway, PGY-1 Status at Discharge Overall status at discharge: patient is progressing back to baseline Time Spent with Patient Time attestation: Total time spent providing and/or coordinating discharge services: 45 minutes Time spent: Greater than 30 minutes Exam Vital Signs Temp Pulse Resp BP Pulse Ox O2 Del Method 97.8 F 88 18 121/76 99 Room Air 12/23/24 09:19 12/23/24 09:19 12/23/24 09:19 12/23/24 09:19 12/23/24 09:19 12/23/24 09:19 Narrative Exam Physical Exam: GENERAL: Awake, answering questions appropriately, appears stated age HEENT: NC/AT. Moist mucosa. PERRLA/EOMI. CARDIO: Heart RRR, no obvious murmurs, no JVD. PULM: No coughing or visible SOB. Lungs CTA B/L. GI: Abdomen soft, NT/ND, +BS. SKIN/MSK/EXT: No wounds/discoloration/rashes/edema/amputations. +Pedal pulses present B/L. NEURO: Oriented x3, Moves extremities x4 and no focal neurological deficits noted Discharge Plan Prescriptions/Referrals Prescriptions/Med Rec: No Action Basaglar KwikPen U-100 Insulin 100 unit/mL (3 mL) insulin pen 25 unit subcut QAM Qty: 15 0RF (DME) blood-glucose meter [Blood Glucose Monitoring] Kit See Rx Instructions .ROUTE .MEDSUPPLY Qty: 1 0RF Rx Instructions: As directed check bloos sugar 3 times a day (DME) Blood Glucose Test Strip See Rx Instructions .ROUTE .MEDSUPPLY Qty: 100 0RF Rx Instructions: As directed check bloos sugar 3 times a day (DME) pen needle, diabetic [Lite Touch Insulin Pen [place]] 31 gauge x 1/4 needle See Rx Instructions .ROUTE .MEDSUPPLY Qty: 50 0RF Rx Instructions: As directed check bloos sugar 3 times a day (DME) lancets [BD Ultra Fine Lancets] 33 gauge misc See Rx Instructions .ROUTE .MEDSUPPLY Qty: 100 0RF Rx Instructions: As directed check bloos sugar 3 times a day (DME) lancets [Lancets, Super Thin] Misc See Rx Instructions .Route Qty: 100 0RF Rx Instructions: As directed (DME) pen needle, diabetic 29 gauge needle See Rx Instructions .Route Qty: 100 0RF Rx Instructions: As directed simvastatin 20 mg tablet 20 mg PO QDAY 30 Days Qty: 30 1RF Patient Comments: TAKE 1 TABLET BY MOUTH EVERY DAY IN THE EVENING metformin 1,000 mg tablet 1,000 mg PO BIDWMEAL 30 Days Qty: 60 1RF Patient Comments: TAKE 1 TABLET BY MOUTH EVERY DAY WITH MORNING AND EVENING MEALS gabapentin 300 mg capsule 300 mg PO TID 30 Days Qty: 90 1RF Patient Comments: TAKE 1 CAPSULE BY MOUTH EVERY MORNING AND 2 AT BEDTIME Rx Instructions: Take 2 in the morning and 1 in the evening daily. hydrochlorothiazide 25 mg tablet 25 mg PO QDAY 30 Days Qty: 30 1RF Patient Comments: TAKE 1 TABLET BY MOUTH DAILY pioglitazone 30 mg tablet 30 mg PO QDAY 30 Days Qty: 30 1RF Patient Comments: TAKE 1 TABLET BY MOUTH EVERY DAY insulin glargine U-300 conc [Toujeo Max U-300 SoloStar] 300 unit/mL (3 mL) insulin pen 40 unit subcut QDAY 30 Days Qty: 6 0RF insulin aspart U-100 [Novolog FlexPen U-100 Insulin] 100 unit/mL (3 mL) insulin pen 1 sliding scale dose subcut USEASDIRECTD 30 Days Qty: 15 0RF propranolol 40 mg tablet 40 mg PO BID MDD 80mg PRN (Reason: anxiety) 30 Days Qty: 60 1RF Patient Comments: TAKE 1 TABLET BY MOUTH TWICE A DAY Rx Instructions: Check blood pressure before taking; if less than 120/80 - please skip dose. Patient/Caregiver Discharge Instructions Print Language: Georgian Quality Discharge Quality Measures VTE prophylaxis Attestestation Attestation I have examined the patient, reviewed labs and imaging findings, discussed the case with the resident(s), and reviewed entered orders. I agree with the plan of care as outlined in this note. Dr. Criselda MD
== END 2024-12-24 11:38 | disposition home or self-care (01) | DRG 420 ==
LOC: SERX 12:19 → SERHOLD 15:19 → S2SX 18:57 → S3SX 12-22 16:09
PROVIDERS: Nurse Practitioner Family; Student in an Organized Health Care Education/Training Program; Admitting Provider Internal Medicine Critical Care Medicine; Emergency Provider Emergency Medicine; PCP Physician Assistant; Visit Provider Internal Medicine
DX: E11.10 Type 2 diabetes mellitus with ketoacidosis without coma (principal); N17.9 Acute kidney failure, unspecified; N20.0 Calculus of kidney; E78.5 Hyperlipidemia, unspecified; K52.9 Noninfective gastroenteritis and colitis, unspecified; I10 Essential (primary) hypertension; Z79.4 Long term (current) use of insulin; Z79.84 Long term (current) use of oral hypoglycemic drugs; Z79.899 Other long term (current) drug therapy
CPT/HCPCS: 36415; 36600; 74176; 80053; 80061; 80069; 81001; 81025; 82010; 82803; 83036; 83605; 83690; 83735; 83880; 84100; 84443; 84484; 85025; 87040; 87081; 87086; 87205; 93005; 99285; J1650; J1815; J2470; J3475; J3480; J7120; J7121; J7999; A9270